=== PATIENT | female | born 1950 | race Caucasian/White ===

== ENCOUNTER 2025-03-13 16:43 | Inpatient (IN) | payer MEDICARE, BC ==
[~2025-03-13] VITALS: Ht 170.2 cm; Wt 107.9 kg
--- NOTE | 2025-03-13 17:11 | ED.PDOC ---
Ravindra. trauma (HPI) HPI Comments 74 y/o F, with PMHx of HTN and DM presents to the ED for CC of right foot pain. Patient states, she was sent by for an MRI d/t pressure ulcer to the 3rd right toe [id number]. Patient relays, the she has had various imaging studies to right foot to examine blood flow to area. Upon arrival to the ED, patient is hypertensive with a blood pressure of 171/114; endorses being nervous at this time. No other symptoms or modifying factors present at this time. Time Seen by MD: 16:55 Reviewed notes: Nurses Notes, Medications, Allergies Allergies: Coded Allergies: NO KNOWN ALLERGIES (Unverified , 03/13/25) Information Source: Patient Mode of Arrival: Ambulatory Severity: Moderate Timing: Months Duration: Since onset Prehospital treatment: None Location: (R) Foot (3rd toe) Location of laceration: None Mechanism: Other (spontaneous) Associated signs and symtoms: None Past Medical History PAST MEDICAL HISTORY: DM, HTN COGNOS ARCHITECT History: Denies all COGNOS ARCHITECT Hx Family History Family History: Unknown Social History Smoker: Non-Smoker Alcohol: Denies ETOH Use Drugs: Denies Drug Use Lives In: Home Constitutional: denies: chills, diaphoresis, fatigue, fever, malaise, sweats, weakness, others EENTM: denies: blurred vision, double vision, ear bleeding, ear discharge, ear drainage, ear pain, ear ringing, eye pain, eye redness, hearing loss, mouth pain, mouth swelling, nasal discharge, nose bleeding, nose congestion, nose pain, photophobia, tearing, throat pain, throat swelling, voice changes, others Respiratory: denies: cough, hemoptysis, orthopnea, SOB at rest, shortness of breath, SOB with excertion, stridor, wheezing, others Cardiovascular: denies: chest pain, dizzy spells, diaphoresis, Dyspnea on exertion, edema, irregular heart beat, left arm pain, lightheadedness, palpitations, PND, syncope, others Gastrointestinal: denies: abdomen distended, abdominal pain, blood streaked bowels, constipated, diarrhea, dysphagia, difficulty swallowing, hematemesis, melena, nausea, poor appetite, poor fluid intake, rectal bleeding, rectal pain, vomiting, others Genitourinary: denies: abnormal vagina bleeding, burning, dyspareunia, dysuria, flank pain, frequency, hematuria, incontinence, pain, , vagina discharge, urgency, others Neurological: denies: dizziness, fainting, headache, left sided numbness, left sided weakness, numbness, paresthesia, pre-existing deficit, right sided numbness, right sided weakness, seizure, speech problems, tingling, tremors, weakness, others Musculoskeletal: denies: back pain, gout, joint pain, joint swelling, muscle pain, muscle stiffness, neck pain, others Integumetry: denies: bruises, change in color, change in hair/nails, dryness, laceration, lesions, lumps, rash, wounds, others Allergic/Immunocompromised: denies: Difficulty Healing, Frequent Infections, Hives, Itching, others Hematologic/Lymphatic: denies: anemia, blood clots, easy bleeding, easy bruising, swollen glands, others Endocrine: denies: excessive hunger, excessive sweating, excessive thirst, excessive urination, flushing, intolerance to cold, intolerance to heat, unexplained weight gain, unexplained weight loss, others Psychiatric: denies: anxiety, bipolar disorder, depression, hopeless, panic disorder, schizophrenia, sleepless, suicidal, others All Other Systems: Reviewed and Negative Physical Exam General Appearance: No Apparent Distress, Normal HEENT: Normal ENT Inspection, Pharynx Normal Neck: Full Range of Motion, Non-Tender, Normal, Normal Inspection Respiratory: Chest Non-Tender, Lungs Clear, No Accessory Muscle Use, No Respiratory Distress, Normal Breath Sounds Cardiovascular: No Edema, No Murmur, No Gallop, Normal Peripheral Pulses, Regular Rate/Rhythm Breast Exam: Deferred Gastrointestinal: No Organomegaly, Non Tender, No Pulsatile Mass, Normal Bowel Sounds, Soft Genitalia: Deferred Pelvic: Deferred Rectal: Deferred Extremities: No calf tenderness, Normal capillary refill, Normal inspection, Normal range of motion, Non-tender, No pedal edema Musculoskeletal : Location: Right Extremity Location: Toe 3 (5mm ulcer to distal right 3rd toe, erythema to area) Neurologic: Alert, transfer clerk II-XII nml as Tested, No Motor Deficits, Normal Affect, Normal Mood, No Sensory Deficits Cerebellar Function: Normal Reflexes: Normal Skin: Dry, Normal Color, Warm Lymphatic: No Adenopathy Was a procedure done? Was a procedure done?: No Differential Diagnosis Neck Injury: Other (pressure ulcer, diabetic foot ulcer) X-Ray, Labs, Meds, VS Vital Signs Date Time Temp Pulse Resp B/P (MAP) Pulse Ox O2 Delivery O2 Flow Rate FiO2 03/13/25 19:43 96 18 96 Room Air 03/13/25 19:43 98.9 96 18 153/90 (111) 96 98.9 03/13/25 16:46 97.9 106 18 180/116 (137) 95 97.9 171/114 (133) Lab Test 03/13/25 19:30 03/13/25 18:33 Range/Units Lactic Acid Level 1.5 1.8 0.4-2.0 mmol/L White Blood Count 8.1 4.4-10.8 10^3/uL Red Blood Count 3.97 L 4.0-5.20 10^6/uL Hemoglobin 12.8 12.2-16.2 g/dL Hematocrit 36.4 36.0-46.0 % Mean Corpuscular Volume 91.8 80.0-100.0 fL Mean Corpuscular Hemoglobin 32.2 H 28.0-32.0 pg Mean Corpuscular Hemoglobin Concent 35.1 32.0-36.0 g/dL Red Cell Distribution Width 13.8 11.8-14.3 % Platelet Count 337 140-450 10^3/uL Mean Platelet Volume 7.5 6.9-10.8 fL Neutrophils (%) (Auto) 48.7 37.0-80.0 % Lymphocytes (%) (Auto) 41.4 10.0-50.0 % Monocytes (%) (Auto) 7.2 0.0-12.0 % Eosinophils (%) (Auto) 2.3 0.0-7.0 % Basophils (%) (Auto) 0.4 0.0-2.0 % Neutrophils # (Auto) 3.9 1.6-8.6 10 ^3/uL Lymphocytes # (Auto) 3.3 0.4-5.4 10 ^3/uL Monocytes # (Auto) 0.6 0-1.3 10 ^3/uL Eosinophils # (Auto) 0.2 0-0.8 10 ^3/uL Basophils # (Auto) 0 0-0.2 10 ^3/uL Nucleated Red Blood Cells 0.3 % Sodium Level 144 136-145 mmol/L Potassium Level 3.9 3.5-5.1 mmol/L Chloride Level 105 98-107 mmol/L Carbon Dioxide Level 27 20-31 mmol/L Anion Gap 12 5-15 Blood Urea Nitrogen 10 9-23 mg/dL Creatinine 0.94 0.550-1.02 mg/dL Glomerular Filtration Rate Calc 63 >90 mL/min BUN/Creatinine Ratio 10.6 10.0-20.0 Serum Glucose 125 H 74-106 mg/dL Calcium Level 10.5 H 8.7-10.4 mg/dL C-Reactive Protein High Sensitivity 0.62 <1.0 mg/dL X-Ray, Labs, Meds, VS Comment Patient will be admitted for osteomyelitis of the right foot 3rd toe Vancomycin started Recommend MRI for further evaluation of bone Time of 1ST Reevaluation: 20:39 Reevaluation 1ST: Unchanged Patient Education/Counseling: Diagnosis, Treatment Family Education/Counseling: No Family Present Departure 1 Departure Time of Disposition: 20:44 Impression: Primary Impression: Osteomyelitis of ankle or foot, acute Qualified Codes: M86.171 - Other acute osteomyelitis, right ankle and foot Disposition: ADMITTED INPATIENT Condition: Stable Critical Care Note Critical Care Time?: No Stability Stability form required: No Heart Score Heart Score: Heart Score Response (Comments) Value History N/A 0 EKG N/A 0 Age N/A 0 Risk Factors N/A 0 Troponin N/A 0 Total 0 I personally scribed for YADY REYNA ([email or web address]) on 03/13/25 at 17:11. Electronically submitted by Olivia Fajardo ([email or web address]). YADY REYNA Mar 13, 2025 17:11
[2025-03-13 19:09] LABS: Basophils # (auto) 0 10 ^3/uL (0-0.2); Basophils % (auto) 0.4 % (0.0-2.0); Eosinophils # (auto) 0.2 10 ^3/uL (0-0.8); Eosinophils % (auto) 2.3 % (0.0-7.0); Hematocrit 36.4 % (36.0-46.0); Hemoglobin 12.8 g/dL (12.2-16.2); Lymphocytes # (auto) 3.3 10 ^3/uL (0.4-5.4); Lymphocytes % (auto) 41.4 % (10.0-50.0); Mean Corpuscular Hemoglobin 32.2 pg (28.0-32.0); Mean Corpuscular Hgb Conc. 35.1 g/dL (32.0-36.0); Mean Corpuscular Volume 91.8 fL (80.0-100.0); Monocytes # (auto) 0.6 10 ^3/uL (0-1.3); Monocytes % (auto) 7.2 % (0.0-12.0); Neutrophils # (auto) 3.9 10 ^3/uL (1.6-8.6); Neutrophils % (auto) 48.7 % (37.0-80.0); Nucleated Red Blood Cells % 0.3 %; Platelet Count (auto) 337 10^3/uL (140-450); Red Blood Cells 3.97 10^6/uL (4.0-5.20); Red Cell Distribution Width 13.8 % (11.8-14.3); White Blood Cell 8.1 10^3/uL (4.4-10.8)
[2025-03-13 19:17] LABS: Chloride 105 mmol/L (98-107); Potassium 3.9 mmol/L (3.5-5.1); Sodium 144 mmol/L (136-145)
[2025-03-13 19:18] LABS: Anion Gap 12 (5-15); Carbon Dioxide 27 mmol/L (20-31)
--- NOTE | 2025-03-13 19:19 | DVH ---
CT right FEET WITHOUT CONTRAST: HISTORY: wound COMPARISON: None CONTRAST: Study was performed without contrast. TECHNIQUE: Axial images with coronal and sagittal reformats of the bilateral feet were obtained witho ut contrast. Dose reduction technique was used on this scan by utilizing automated exposure control, adjustment of the mA and/or kV according to the patient size. DICOM format image data available to [facility]-affiliated external healthcare facilities or entities on a secure, media free, reciprocally searcha ble basis with patient authorization for at least a 12 month period after the study FINDINGS: There is osseus erosion involving the 3rd distal and middle phalanges , osseus erosion of t he tuft of the 2nd distal phalanx, there is volar dislocation- hammertoe deformity of the 3rd through 5th toes. Mild degenerative changes within the mid foot. Posterior and inferior calcaneal enthesopathy is noted . Mild degenerative changes of the tibiotalar joint. Vascular calcifications. IMPRESSION: 1. Osteomyelitis of the 2nd distal phalanx and the 3rd distal and middle phalanges.
[2025-03-13 19:23] LABS: BUN/Creatinine Ratio 10.6 (10.0-20.0); Blood Urea Nitrogen 10 mg/dL (9-23)
[2025-03-13 19:24] LABS: CRP High Sensitivity 0.62 mg/dL (<1.0)
[2025-03-13 19:28] LABS: Calcium 10.5 mg/dL (8.7-10.4); Glucose 125 mg/dL (74-106)
[2025-03-13] MEDS: VANCOMYCIN 1GM/200ML PM 200 ML IV ONE (20:43)
[2025-03-13] MEDS ORDERED: ACETAMINOPHEN 325 MG TAB PO PRN (21:00)
[2025-03-13] MEDS ORDERED: MORPHINE SULFATE INJ 2 MG/ml SYRG IV PRN ×2 (21:00)
[2025-03-13] MEDS ORDERED: NITROGLYCERIN 0.4 MG SL TAB SL PRN (21:00)
[2025-03-13] MEDS ORDERED: DOCUSATE SOD 100 MG CAP PO PRN (21:00)
[2025-03-13] MEDS ORDERED: ONDANSETRON HCL 4 MG/2 ML VIAL IV PRN (21:00)
[2025-03-13] MEDS ORDERED: HYDROcodone-ACET 5/325MG TAB PO PRN (21:00)
[2025-03-13] MEDS ORDERED: VANCOMYCIN PER PHARMACY 0 MG IV SCH (21:15)
[2025-03-13] MEDS ORDERED: DEXTROSE (50%) 50ML SYRG IV PRN (21:15)
--- NOTE | 2025-03-13 21:28 | DVHHPRES ---
History of Present Illness Resident Creating Document: VERÓNICA BHAT RESIDENT History of Present Illness Ms. Ratliff, a 74-year-old female with a past medical history of hypertension and diabetes mellitus presents to the ED with a chief complaint of right foot pain. She reports being referred by Dr. Medina for an MRI due to a pressure ulcer on the third toe of the right foot, present for approximately two months. The ulcer developed spontaneously, without trauma, and she has undergone various imaging studies to assess blood flow to the area. She arrived ambulatory and has not received any prehospital treatment. On arrival, she was hypertensive (BP 171/114), which she attributes to feeling nervous. She denies any associated symptoms or modifying factors. Past Medical History DM, HTN. glaucoma Past Surgical History: None Family History: None, DM, Hyperlipidemia, Hypertension Smoke: No ALCOHOL: none Drugs: None Lives: with Family Domestic Violence: Neg Review of Systems Constitutional: No: Fever, Chills, Sweats, Weakness, Malaise, Other Eyes: No: Pain, Vision change, Conjunctivae inflammation, Eyelid inflammation, Other, Redness ENT: No: Ear pain, Ear discharge, Nose pain, Nose discharge, Nose congestion, Mouth pain, Mouth swelling, Throat pain, Throat swelling, Other Respiratory: No: Cough, Dry, Shortness of breath, SOB with excertion, Wheezing, Hemoptysis, Pleuritic Pain, Sputum, Wheezing, Other Cardiovascular: No: Chest Pain, Palpitations, Orthopnea, Paroxysmal Noc. Dyspnea, Edema, Lt Headedness, Other Gastrointestinal: No: Nausea, Vomiting, Abdominal Pain, Diarrhea, Constipation, Melena, Hematochezia, Other Genitourinary: No Dysuria, No Frequency, No Incontinence, No Hematuria, No Retention, No Other Musculoskeletal: foot pain; No: other, neck pain, shoulder pain, arm pain, back pain, hand pain, leg pain Skin: Lesions; No: Rash, Jaundice, Bruising, Other Neurological: Other (peripheral neuropathy equidistributed ); No: Weakness, Numbness, Incoordination, Change in speech, Confusion, Seizures Allergies: Coded Allergies: NO KNOWN ALLERGIES (Unverified , 03/13/25) Medications Current Medications Medications Dose Ordered Sig/Robert Route Start Time Stop Time Status Last Admin Dose Admin Sodium Chloride 1,000 ml @ 60 mls/hr [id number] IV 03/13/25 21:00 UNV Acetaminophen/ Hydrocodone Bitart 1 tab Q4HP PRN PO 03/13/25 21:00 UNV Ondansetron HCl 4 mg Q4HP PRN IV 03/13/25 21:00 UNV Docusate Sodium 100 mg BIDPRN PRN PO 03/13/25 21:00 UNV Acetaminophen 650 mg Q6HP PRN PO 03/13/25 21:00 UNV Morphine Sulfate 2 mg Q4HPRN PRN IV 03/13/25 21:00 UNV Nitroglycerin 0.4 mg Q5MINP PRN SL 03/13/25 21:00 UNV Morphine Sulfate 2 mg Q30M PRN IV 03/13/25 21:00 UNV Vancomycin HCl 0 ml @ 0 mls/hr UD IV 03/13/25 21:15 UNV Cefepime HCl 50 ml @ 12.5 mls/hr DAILY IV 03/13/25 21:15 UNV Gabapentin 100 mg BID PO 03/13/25 22:00 UNV Diagnostic Test (Pha) 1 strip Q6HR 03/14/25 00:00 UNV Insulin Human Regular Q6HR SC 03/14/25 00:00 UNV Dextrose 50 ml UD PRN IV 03/13/25 21:15 UNV Exam Vital Signs Vital Signs Date Time Temp Pulse Resp B/P (MAP) Pulse Ox O2 Delivery O2 Flow Rate FiO2 03/13/25 19:43 96 18 96 Room Air 03/13/25 19:43 98.9 153/90 (111) 98.9 General Appearance: Alert, Oriented X3, Cooperative, No acute distress HEENT: Atraumatic, PERRLA, EOMI, Mucous membr. moist/pink Respiratory: Clear to auscultation, Normal air movement Cardiovascular: Regular rate, Normal S1, Normal S2, No murmurs Abdominal: Normal bowel sounds, Soft, No tenderness, No hepatospenomegaly, No masses Extremities: No clubbing, No cyanosis, No edema, Normal pulses, No tenderness/swelling, Other (noted wound, dry base ) Skin: No rashes, No breakdown, No significant lesion Neuro: Normal gait, Normal speech, Strength at 5/5 X4 ext, Normal tone, Sensation intact, Cranial nerves 3-12 NL, Reflexes 2+ Psych/Mental Status: Mental status NL, Mood NL Labs/Xrays Labs Test 03/13/25 19:30 03/13/25 18:33 Range/Units Lactic Acid Level 1.5 0.4-2.0 mmol/L White Blood Count 8.1 4.4-10.8 10^3/uL Red Blood Count 3.97 L 4.0-5.20 10^6/uL Hemoglobin 12.8 12.2-16.2 g/dL Hematocrit 36.4 36.0-46.0 % Mean Corpuscular Volume 91.8 80.0-100.0 fL Mean Corpuscular Hemoglobin 32.2 H 28.0-32.0 pg Mean Corpuscular Hemoglobin Concent 35.1 32.0-36.0 g/dL Red Cell Distribution Width 13.8 11.8-14.3 % Platelet Count 337 140-450 10^3/uL Mean Platelet Volume 7.5 6.9-10.8 fL Neutrophils (%) (Auto) 48.7 37.0-80.0 % Lymphocytes (%) (Auto) 41.4 10.0-50.0 % Monocytes (%) (Auto) 7.2 0.0-12.0 % Eosinophils (%) (Auto) 2.3 0.0-7.0 % Basophils (%) (Auto) 0.4 0.0-2.0 % Neutrophils # (Auto) 3.9 1.6-8.6 10 ^3/uL Lymphocytes # (Auto) 3.3 0.4-5.4 10 ^3/uL Monocytes # (Auto) 0.6 0-1.3 10 ^3/uL Eosinophils # (Auto) 0.2 0-0.8 10 ^3/uL Basophils # (Auto) 0 0-0.2 10 ^3/uL Nucleated Red Blood Cells 0.3 % Sodium Level 144 136-145 mmol/L Potassium Level 3.9 3.5-5.1 mmol/L Chloride Level 105 98-107 mmol/L Carbon Dioxide Level 27 20-31 mmol/L Anion Gap 12 5-15 Blood Urea Nitrogen 10 9-23 mg/dL Creatinine 0.94 0.550-1.02 mg/dL Glomerular Filtration Rate Calc 63 >90 mL/min BUN/Creatinine Ratio 10.6 10.0-20.0 Serum Glucose 125 H 74-106 mg/dL Calcium Level 10.5 H 8.7-10.4 mg/dL C-Reactive Protein High Sensitivity 0.62 <1.0 mg/dL Assessment/Plan Assessment/Plan #Likely sepsis, check for lactate, tachycardia, tachypnea. #Essential hypertension, uncontrolled, ideal blood pressure should be 130/80 or below. #hypertensive urgency presented with 180s/ 116, slow BP control over 24-48 hours. #Glaucoma on trouble with Prost 0.004% eyedrops irbesartan 300 mg tab , atenolol 100 mg tab daily #grade 1 obesity: Patient is on Ozempic, continue weight loss. Check TSH. #peripheral neuropathy on gabapentin 100 mg b.i.d. #diabetes mellitus on Ozempic, glimepiride, metformin 100 mg tab. we will check HbA1c keep the blood glucose between 140-180 #osteomyelitis 2nd distal phalanx and 3rd distal middle phalanx: Continue van comycin, cefepime, wound culture, blood culture, Podiatry, possible amputation, keep the patient NPO, check INR. Patient was on home doxycycline, likely subtherapeutic, infective. #diabetic foot ulcer: wound care and diabetes control, foot care. check HbA1C #DVT prophylaxis with SCD. GI prophylaxis with PPI. PCP: Dr. Bailey. Specialist Relevant To Admission: Podiatry consulted Dr. Garcia. Wound consult. Case discussed with Dr. Little. Code Status: Full Code. Goals of care and plan of care discussion needed total 33 minutes bedside. The patient is agreeable to the plan of care. Plan discussed with: Patient My Orders Orders - VERÓNICA BHAT RESIDENT Procedure Category Date Status Time Admit ADMIT 03/13/25 Transmitted 20:53 Allergies SASHA 03/13/25 In Process 20:53 Code Status CODE 03/13/25 Transmitted 20:53 Sodium Chloride 0.9% PHA 03/13/25 Logged 21:00 Hydrocodone-Acet PHA 03/13/25 Logged 5/325mg Tab ([place] 21:00 Ondansetron Hcl PHA 03/13/25 Logged (Zofran) 21:00 Docusate Sodium PHA 03/13/25 Logged Capsule (Colace 21:00 Complete Blood Count LAB 03/14/25 Verified 04:00 Comprehensive LAB 03/14/25 Verified Metabolic Panel 04:00 Npo (Nothing By DIET 03/14/25 Transmitted Mouth) Diet Breakfast Pt Request For Service PT 03/13/25 Logged 20:53 Condition: Fair [facility] 03/13/25 In Process 20:53 Acetaminophen Tablet [facility] 03/13/25 Logged (Tylenol Tablet) 21:00 Morphine Sulfate PHA 03/13/25 Logged Injection 21:00 Sequential SASHA 03/13/25 In Process Compression Device Nitroglycerin [facility] 03/13/25 Logged Sublingual (Ntrostat 21:00 Morphine Sulfate [facility] 03/13/25 Logged Injection 21:00 Oxygen By Nasal RT 03/13/25 Transmitted Cannula 20:53 Stat Ekg For Chest [facility] 03/13/25 In Process Pain 20:53 Notify Md Of Changes [facility] 03/13/25 In Process From Base 20:53 Jewel Waxer For [facility] 03/13/25 In Process 24 Hours 20:53 Emergency Dysrhythmia [facility] 03/13/25 In Process Protocol 20:53 Rhythm Strips Once [facility] 03/13/25 In Process Every Shift 20:53 Vancomycin Per PHA 03/13/25 Logged Pharmacy 21:15 Cefepime 1gm/ 50ml PHA 03/13/25 Logged (Maxipime 1gm/50ml) 21:15 Wound Culture W/ Gs TONE 03/13/25 Logged 21:08 Erythrocyte LAB 03/13/25 Logged Sedimentation Rate 21:08 Hepatic Panel LAB 03/13/25 Logged 21:08 Gabapentin Capsule PHA 03/13/25 Logged (Neurontin Capsule) 22:00 Glucose Blood [facility] 03/14/25 Logged (Accu-Chek Comfort 00:00 Insulin R (Human) PHA 03/14/25 Logged (Insulin R) 00:00 Dextrose 50% Syringe PHA 03/13/25 Logged 21:15 Prothrombin Time W/ LAB 03/13/25 Logged INR 21:08 *Podiatry Consult CONS 03/13/25 Transmitted Musson(Dvmg) 21:08 Date of Service: Mar 13, 2025 Billing Provider: MERLE LITTLE MD Common Visit Codes: [id number] INP/OBS CARE (HIGH) Secondary Visit Codes: [id number] CARE PLAN 30 MINUTES VERÓNICA BHAT RESIDENT Mar 13, 2025 21:28
[2025-03-13] MEDS: SODIUM CHLORIDE 0.9% 1,000 ML IV SCH (21:45)
[2025-03-13 22:04] LABS: Bilirubin, Direct 0.1 mg/dL (<0.3); Bilirubin, Total 0.3 mg/dL (0.2-1.0); Total Protein 7.9 g/dL (5.7-8.2)
[2025-03-13 22:07] LABS: INR 1.02 (0.9-1.15); Prothrombin Time 10.8 sec (9.3-11.8)
[2025-03-13 22:20] LABS: Albumin 4.8 g/dL (3.2-4.8)
[2025-03-13 22:42] LABS: Erythrocyte Sedimentation Rate 47 mm/hr (0-20)
[2025-03-13 22:55] VITALS: BP 154/80; PULSE 93; RESP 17; TEMP 97.8; O2SAT 97
[2025-03-13] MEDS: PANTOPRAZOLE 40 MG/10 ML VIAL INJ IV SCH (23:03)
[2025-03-13] MEDS: CEFEPIME 1GM/ 50ML 50 ML IV SCH (23:03)
[2025-03-13] MEDS: GABAPENTIN 100 MG CAP PO SCH (23:04)
[2025-03-13] MEDS: NIFEdipine ER 30 MG TAB PO ONE (23:08)
[2025-03-14] VITALS (11 sets, daily range): BP systolic 107–142; BP diastolic 62–84; PULSE 75–101; RESP 15–20; TEMP 96.8–98.6; O2SAT 92–98
[2025-03-14] MEDS: ACCU-CHEK COMFORT CURVE STRIP VI SCH (00:07)
[2025-03-14] MEDS: InsuLIN REG 1unit/0.01ml Soln (100units/ml) SC SCH (00:09)
[2025-03-14 07:25] LABS: Basophils # (auto) 0 10 ^3/uL (0-0.2); Basophils % (auto) 0.5 % (0.0-2.0); Eosinophils # (auto) 0.2 10 ^3/uL (0-0.8); Eosinophils % (auto) 2.3 % (0.0-7.0); Hematocrit 33.4 % (36.0-46.0); Hemoglobin 11.7 g/dL (12.2-16.2); Lymphocytes # (auto) 2.7 10 ^3/uL (0.4-5.4); Mean Corpuscular Hemoglobin 32.5 pg (28.0-32.0); Mean Corpuscular Hgb Conc. 35.1 g/dL (32.0-36.0); Mean Corpuscular Volume 92.7 fL (80.0-100.0); Monocytes # (auto) 0.5 10 ^3/uL (0-1.3); Monocytes % (auto) 7.2 % (0.0-12.0); Neutrophils # (auto) 3.5 10 ^3/uL (1.6-8.6); Nucleated Red Blood Cells % 0.1 %; Platelet Count (auto) 292 10^3/uL (140-450); White Blood Cell 6.9 10^3/uL (4.4-10.8)
[2025-03-14 07:28] LABS: Alanine Aminotransferase 13 U/L (7-40); Albumin 4.2 g/dL (3.2-4.8); Alkaline Phosphatase 56 U/L (46-116); Anion Gap 11 (5-15); Aspartate Aminotransferase 18 U/L (<34); BUN/Creatinine Ratio 13.8 (10.0-20.0); Bilirubin, Total 0.4 mg/dL (0.2-1.0); Blood Urea Nitrogen 11 mg/dL (9-23); Calcium 9.2 mg/dL (8.7-10.4); Carbon Dioxide 27 mmol/L (20-31); Chloride 106 mmol/L (98-107); Glucose 98 mg/dL (74-106); Lipase 44 U/L (12-53); Potassium 3.7 mmol/L (3.5-5.1); Sodium 144 mmol/L (136-145); Total Protein 6.9 g/dL (5.7-8.2)
[2025-03-14 07:30] LABS: % Iron Saturation 18.4 % (15-50)
--- NOTE | 2025-03-14 11:41 | DVHINCON2 ---
Date Seen: Mar 14, 2025 Reason for Consultation Right 3rd toe wound History of Present Illness Ms. Ratliff, a 74-year-old female with a past medical history of hypertension and diabetes mellitus presents to the ED with a chief complaint of right foot pain. She reports being referred by Dr. Medina for an MRI due to a pressure ulcer on the third toe of the right foot, present for approximately two months. The ulcer developed spontaneously, without trauma, and she has undergone various imaging studies to assess blood flow to the area. She arrived ambulatory and has not received any prehospital treatment. On arrival, she was hypertensive (BP 171/114), which she attributes to feeling nervous. She denies any associated symptoms or modifying factors. Past Medical History See H&P Past Surgical History See H&P Family History: Patient reports no known family medical history. Allergies: Coded Allergies: NO KNOWN ALLERGIES (Unverified , 03/13/25) Home Meds Unable to Obtain Active Prescriptions or Reported Meds Current Medications Current Medications Medications (Trade) Dose Ordered Sig/Robert Route PRN Reason Start Time Stop Time Status Last Admin Sodium Chloride 1,000 ml @ 60 mls/hr [id number] IV 03/13/25 21:00 03/13/25 23:04 Acetaminophen/ Hydrocodone Bitart (Alma 5/325MG Tab) 1 tab Q4HP PRN PO MODERATE PAIN (4-6 PAIN SCALE) 03/13/25 21:00 Ondansetron HCl (Zofran) 4 mg Q4HP PRN IV NAUSEA / VOMITING 03/13/25 21:00 Docusate Sodium (Colace Capsule) 100 mg BIDPRN PRN PO FOR CONSTIPATION 03/13/25 21:00 Acetaminophen (Tylenol Tablet) 650 mg Q6HP PRN PO PAIN SCALE 1-3 OR TEMP>100.4 03/13/25 21:00 Morphine Sulfate 2 mg Q4HPRN PRN IV SEVERE PAIN (7-10 PAIN SCALE) 03/13/25 21:00 Nitroglycerin (Ntrostat Sublingual) 0.4 mg Q5MINP PRN SL FOR CHEST PAIN 03/13/25 21:00 Morphine Sulfate 2 mg Q30M PRN IV FOR CHEST PAIN 03/13/25 21:00 Vancomycin HCl 0 ml @ 0 mls/hr UD IV 03/13/25 21:15 Cefepime HCl 50 ml @ 12.5 mls/hr DAILY IV 03/13/25 21:15 03/14/25 09:57 Gabapentin (Neurontin Capsule) 100 mg BID PO 03/13/25 22:00 03/14/25 09:55 Diagnostic Test (Pha) (Accu-Chek Comfort Curve T) 1 strip Q6HR 03/14/25 00:00 03/14/25 05:48 Insulin Human Regular (InsuLIN R) Q6HR SC 03/14/25 00:00 03/14/25 00:09 Dextrose 50 ml UD PRN IV Blood Sugar LESS THAN 60 03/13/25 21:15 Pantoprazole Sodium (Protonix) 40 mg DAILY IV 03/13/25 21:30 03/14/25 10:02 Vital Signs Vital Signs Date Time Temp Pulse Resp B/P (MAP) Pulse Ox O2 Delivery O2 Flow Rate FiO2 03/14/25 09:00 97.9 90 20 116/81 (93) 98 97.9 03/14/25 01:53 Room Air* 0 21 Physical Exam Dermatological: Skin is dry with mild erythema and some maceration around the wound site No gross deformities noted Mild non-pitting edema present bilaterally Wound: Location: Right 3rd toe Measures: 1 cm in length, 1 cm in width, and 0.5 cm in depth. Depth: Full thickness Base: Mix of granulation/slough Drainage: None Odor: None Periwound: Intact Vascular: Dorsalis pedis and posterior tibial pulses are 1+ bilaterally Capillary refill is under 2 seconds Skin temperature is warm bilaterally Neurologic: Protective sensation is absent on the plantar forefoot bilaterally Monofilament testing reveals decreased sensation in multiple plantar sites Musculoskeletal: Range of motion at the ankle and MTP joints is within normal limits. Strength is 5/5 in all tested muscle groups. Gait is antalgic due to offloading of the affected limb. Labs/Diagnostic Data Labs Test 03/14/25 06:45 03/14/25 05:42 03/13/25 18:33 Range/Units White Blood Count 6.9 4.4-10.8 10^3/uL Red Blood Count 3.60 L 4.0-5.20 10^6/uL Hemoglobin 11.7 L 12.2-16.2 g/dL Hematocrit 33.4 L 36.0-46.0 % Mean Corpuscular Volume 92.7 80.0-100.0 fL Mean Corpuscular Hemoglobin 32.5 H 28.0-32.0 pg Mean Corpuscular Hemoglobin Concent 35.1 32.0-36.0 g/dL Red Cell Distribution Width 14.0 11.8-14.3 % Platelet Count 292 140-450 10^3/uL Mean Platelet Volume 7.4 6.9-10.8 fL Neutrophils (%) (Auto) 51.0 37.0-80.0 % Lymphocytes (%) (Auto) 39.0 10.0-50.0 % Monocytes (%) (Auto) 7.2 0.0-12.0 % Eosinophils (%) (Auto) 2.3 0.0-7.0 % Basophils (%) (Auto) 0.5 0.0-2.0 % Neutrophils # (Auto) 3.5 1.6-8.6 10 ^3/uL Lymphocytes # (Auto) 2.7 0.4-5.4 10 ^3/uL Monocytes # (Auto) 0.5 0-1.3 10 ^3/uL Eosinophils # (Auto) 0.2 0-0.8 10 ^3/uL Basophils # (Auto) 0 0-0.2 10 ^3/uL Nucleated Red Blood Cells 0.1 % Sodium Level 144 136-145 mmol/L Potassium Level 3.7 3.5-5.1 mmol/L Chloride Level 106 98-107 mmol/L Carbon Dioxide Level 27 20-31 mmol/L Anion Gap 11 5-15 Blood Urea Nitrogen 11 9-23 mg/dL Creatinine 0.80 0.550-1.02 mg/dL Glomerular Filtration Rate Calc 77 >90 mL/min BUN/Creatinine Ratio 13.8 10.0-20.0 Serum Glucose 98 74-106 mg/dL Lactic Acid Level 1.2 0.4-2.0 mmol/L Calcium Level 9.2 8.7-10.4 mg/dL Iron Level 50 50-170 ug/dL Total Iron Binding Capacity 272 250-425 ug/dL Percent Iron Saturation 18.4 15-50 % Ferritin 157.1 10-291 ng/mL Total Bilirubin 0.4 0.2-1.0 mg/dL Aspartate Amino Transferase (AST) 18 <34 U/L Alanine Aminotransferase (ALT) 13 7-40 U/L Alkaline Phosphatase 56 46-116 U/L Total Protein 6.9 5.7-8.2 g/dL Albumin 4.2 3.2-4.8 g/dL Lipase 44 12-53 U/L Thyroid Stimulating Hormone (TSH) 3.18 0.55-4.78 uIU/mL POC Glucose 98 70-106 mg/dl Erythrocyte Sedimentation Rate 47 H 0-20 mm/hr Prothrombin Time 10.8 9.3-11.8 sec Prothrombin Time INR 1.02 0.9-1.15 Hemoglobin A1c 5.9 H <5.7 % A1C Direct Bilirubin 0.1 <0.3 mg/dL C-Reactive Protein High Sensitivity 0.62 <1.0 mg/dL Problems(with codes): (1) Osteomyelitis of ankle or foot, acute Plan/Recommendation ASSESSMENT: Patient is a 74 year old seen on the floor for a worsening ulcer PLAN: - The patients chart was reviewed, clinical findings were discussed with the patient, the etiologies of the conditions were discussed in detail, and a treatment plan was agreed to at this time, with both oral and written instructions provided. - reviewed advanced imaging - discussed plan is to perform an incision and drainage - patient has been NPO since midnight - take him to the OR today - we will get cultures in the OR - can weightbear as tolerated in postoperative shoe - can discharged home on p.o. antibiotics pending surgical intervention today All questions were answered and concerns addressed to the patient's satisfaction. The patient was given the phone number to the clinic and was told how to make contact with the clinic should any concerns or questions arise. Patient understands that if any questions or concerns arise prior to the next appointment, we should be contacted immediately. FOLLOW-UP: Continue to follow while inpatient Plan discussed with: Patient Date of Service: Mar 14, 2025 Billing Provider: ORQUIDEA ROBERT DPM Common Visit Codes: CONSULT ONLY Consultation Codes: [id number] CONSULT <80MIN ORQUIDEA ROBERT DPM Mar 14, 2025 11:40
--- NOTE | 2025-03-14 11:45 | DVHPN2 ---
Reviewed: Care Plan, H&P, Labs, Medications, Previous Orders, Radiology Changes from previous H/P or p: No Changes Eyes: No Pain, No Vision change, No Conjunctivae inflammation, No Eyelid inflammation, No Other, No Redness ENT: No Ear pain, No Ear discharge, No Nose pain, No Nose discharge, No Nose congestion, No Mouth pain, No Mouth swelling, No Throat pain, No Throat swelling, No Other Cardiovascular: No Chest Pain, No Palpitations, No Orthopnea, No Paroxysmal Noc. Dyspnea, No Edema, No Lt Headedness, No Other Respiratory: No Cough, No Dry, No Shortness of breath, No SOB with excertion, No Wheezing, No Hemoptysis, No Pleuritic Pain, No Sputum, No Other Gastrointestinal: No Nausea, No Vomiting, No Abdominal Pain, No Diarrhea, No Constipation, No Melena, No Hematochezia, No Other Genitourinary: No Dysuria, No Frequency, No Incontinence, No Hematuria, No Retention, No Other Musculoskeletal: No other, No neck pain, No shoulder pain, No arm pain, No back pain, No hand pain, No leg pain; foot pain Skin: No Rash; Lesions; No Jaundice, No Bruising, No Other Objective Vitals Vital Signs Date Time Temp Pulse Resp B/P (MAP) Pulse Ox O2 Delivery O2 Flow Rate FiO2 03/14/25 09:00 97.9 90 20 116/81 (93) 98 97.9 03/14/25 01:53 Room Air* 0 21 Intake/Output Intake and Output 03/14/25 07:00 Intake Total 450 ml Balance 450 ml Intake Oral 200 ml IV Total 250 ml # Voids 1 Medications Current Medications Medications Dose Ordered Sig/Robert Route Start Time Stop Time Status Last Admin Dose Admin Sodium Chloride 1,000 ml @ 60 mls/hr [id number] IV 03/13/25 21:00 03/13/25 23:04 60 MLS/HR Acetaminophen/ Hydrocodone Bitart 1 tab Q4HP PRN PO 03/13/25 21:00 Ondansetron HCl 4 mg Q4HP PRN IV 03/13/25 21:00 Docusate Sodium 100 mg BIDPRN PRN PO 03/13/25 21:00 Acetaminophen 650 mg Q6HP PRN PO 03/13/25 21:00 Morphine Sulfate 2 mg Q4HPRN PRN IV 03/13/25 21:00 Nitroglycerin 0.4 mg Q5MINP PRN SL 03/13/25 21:00 Morphine Sulfate 2 mg Q30M PRN IV 03/13/25 21:00 Vancomycin HCl 0 ml @ 0 mls/hr UD IV 03/13/25 21:15 Cefepime HCl 50 ml @ 12.5 mls/hr DAILY IV 03/13/25 21:15 03/14/25 09:57 12.5 MLS/HR Gabapentin 100 mg BID PO 03/13/25 22:00 03/14/25 09:55 100 MG Diagnostic Test (Pha) 1 strip Q6HR 03/14/25 00:00 03/14/25 05:48 1 STRIP Insulin Human Regular Q6HR SC 03/14/25 00:00 03/14/25 00:09 3 UNITS Dextrose 50 ml UD PRN IV 03/13/25 21:15 Pantoprazole Sodium 40 mg DAILY IV 03/13/25 21:30 03/14/25 10:02 40 MG Laboratory Results Laboratory Tests 03/14/25 06:45 Chemistry Test 03/13/25 18:33 03/14/25 06:45 Albumin 4.8 g/dL (3.2-4.8) 4.2 g/dL (3.2-4.8) Calcium Level 10.5 mg/dL (8.7-10.4) H 9.2 mg/dL (8.7-10.4) Total Protein 7.9 g/dL (5.7-8.2) 6.9 g/dL (5.7-8.2) Coagulation Test 03/13/25 18:33 Prothrombin Time 10.8 sec (9.3-11.8) Prothrombin Time INR 1.02 (0.9-1.15) Lipid panel Test 03/14/25 06:45 Lipase 44 U/L (12-53) LFT Test 03/13/25 18:33 03/14/25 06:45 Alanine Aminotransferase (ALT) 13 U/L (7-40) 13 U/L (7-40) Alkaline Phosphatase 71 U/L (46-116) 56 U/L (46-116) Aspartate Amino Transferase (AST) 20 U/L (<34) 18 U/L (<34) Direct Bilirubin 0.1 mg/dL (<0.3) Total Bilirubin 0.3 mg/dL (0.2-1.0) 0.4 mg/dL (0.2-1.0) HgA1c, TSH Test 03/13/25 18:33 03/14/25 06:45 Hemoglobin A1c 5.9 % A1C (<5.7) H Thyroid Stimulating Hormone (TSH) 2.14 uIU/mL (0.55-4.78) 3.18 uIU/mL (0.55-4.78) Labs and/or images reviewed: Labs reviewed by me, Image(s) reviewed by me Assessment/Plan Assessment/Plan Sepsis secondary to osteomyelitis: Blood cultures pending Acute osteomyelitis right 2nd and 3rd toe: Vancomycin cefepime consult for orthotic and prosthetic technician Dr Garcia Hypertensive urgency BP 174/114 metoprolol tartrate Peripheral neuropathy on gabapentin Diabetic right foot ulcer Uncontrolled diabetes: Insulin sliding scale: Patient on Ozempic metformin glimepiride, Will check A1c Diabetic neuropathy nephropathy vasculopathy: Gabapentin Time spent 70 minutes Advanced care planning time 20 minutes Patient is full code PCP Dr. Banda in [place] Plan discussed with: Patient Date of Service: Mar 14, 2025 Billing Provider: ANNIE PRECIADO MD Common Visit Codes: [id number] CARE 30-74 MIN ANNIE PRECIADO MD Mar 14, 2025 11:45
[2025-03-14] MEDS: METOPROLOL TARTRATE 50 MG TAB PO SCH (12:42)
[2025-03-14] MEDS: ceFAZolin 1GM/50ML 100 ML IV ONE (13:40)
[2025-03-14] MEDS: BUPIVACAINE 0.5% P/F INJ 10 ML VIAL ONE (14:34)
[2025-03-14] MEDS ORDERED: fentaNYL CITRATE 100 MCG/2 ML VL ONE (14:44)
[2025-03-14] MEDS ORDERED: MIDAZOLAM HCL 2MG/2ML 2ml VIAL (1mg/ml) ONE (14:44)
--- NOTE | 2025-03-14 14:44 | DVH ---
CHEST RADIOGRAPH Indication: PREOP EVAL Technique: Single frontal view of the chest was obtained COMPARISON: None FINDINGS: Lines and Tubes: None Lungs: Clear Pleura: No effusion. No pneumothorax. Cardiomediastinal contours: Unremarkable Bones: Unremarkable IMPRESSION: No acute disease.
[2025-03-14] MEDS: VANCOMYCIN HCL 1000 MG VL ONE (14:46)
--- NOTE | 2025-03-14 15:01 | DVHOP2 ---
Operative Report - 2 Report Details Date: 03/14/25 Preop Diagnosis: 1. Right 3rd toe osteomyelitis 2. Right 3rd toe abscess 3. Right 3rd toe cellulitis 4. Right foot hammertoes 2 through 5 5. Right foot diabetic ulcer Postop Diagnosis: Same as preop Surgeon: Orquidea Robert MD Anesthesiologist: See anesthesia Anesthesia: Mac Consent: The patient was informed of the risks and benefits of the procedure. These include but are not limited to complications of anesthesia, postoperative infection, incomplete relief of symptoms, recurrence of symptoms, damage to blood vessels, nerves and tendons, deep venous thrombosis, pulmonary embolism and possible need for repeat surgery in the future. Complications: None Estimated Blood Loss: Minimal Fluids: See anesthesia Findings: Consistent with the diagnosis Indications for Surgery: Worsening foot wound Name of Procedure Performed 1. Right foot I&D to bone (85006) 2. Right distal phalanx amputation (81210) 3. Right proximal phalanx bone biopsy () 4. Right diabetic rotational flap (63367) 5. Right foot delayed closure (75040) 6. Right flexor tenotomy toes 2-5 (75924) x 4 Procedure Details Procedure Details: PRE-PROCEDURE INFORMATION: In the pre-op holding area, the extremity to be operated on was clearly marked and the patient verified correct laterality of the marking. The patient was transferred to the OR table and placed in a supine position. A timeout was performed in which identification of the correct patient, procedure, location, and materials was done. The right foot and leg were prepped and draped in normal sterile fashion. DESCRIPTION OF PROCEDURE: Attention was directed to the right where area of fluctuance was noted. An incision was made over this area and was deepened through blunt dissection. The incision was deepened to the level of abscess and bone. Care was taken to the dissection to avoid any neurovascular and tendinous structures. The incision was deepened to the bone, and the abscess appeared to be purulent fluid consistent with pus. The cortices of the bone was then removed with rongeur an all necrotic tissue. After the abscess was drained, the area was irrigated with 3 L normal saline using cysto tubing. Deep cultures were then obtained from the wound. The area was then inspected and any areas of tracking, especially along the tendons were also drained. It was decided at this point that the distal phalanx needed to be removed. A rongeur was then used to disarticulate at the IPJ. A bone biopsy was then taken of the proximal phalanx and sent off. Due to the soft tissue deficit, rotational advancement flap was designed medially to laterally and elevated preserving vascularity. A delayed closure was then performed using 2-0 nylon after was deemed appropriate with no longer concern for infection. Attention was directed to the right 2nd toe. Using a 18 gauge needle, the toe was extended and a sweeping motion was made on the FDL. It was noted that the contracture of the digit was then relieved after the flexor tendon was released. Attention was directed to the right 3rd toe. Using a 18 gauge needle, the toe was extended and a sweeping motion was made on the FDL. It was noted that the contracture of the digit was then relieved after the flexor tendon was released. Attention was directed to the right 4th toe. Using a 18 gauge needle, the toe was extended and a sweeping motion was made on the FDL. It was noted that the contracture of the digit was then relieved after the flexor tendon was released. Attention was directed to the right 5th toe. Using a 18 gauge needle, the toe was extended and a sweeping motion was made on the FDL. It was noted that the contracture of the digit was then relieved after the flexor tendon was released. All surgical wounds were irrigated copiously with saline and closed in layers with the aforementioned suture material. A dry sterile dressing was placed on the surgical extremity. The patient was placed in a postop shoe POSTOPERATIVE INFORMATION: The patient tolerated the above noted procedure and anesthesia well and was transferred to the PACU with vital signs stable, and vascular status intact with capillary refill intact to all digits. Deep cultu res were taken. Bone biopsy was sent off. Recommend the patient does 3 weeks of p.o. antibiotics based off surgical specimen appears to be with clean bone. Can weightbear as tolerated in a postop shoe. Leave dressings clean dry and intact until 1st postop visit, patient can be discharged home. Specimen: Right 3rd proximal phalanx Condition Good Disposition Still a Patient ORQUIDEA ROBERT DPM Mar 14, 2025 15:01
[2025-03-14] MEDS: VANCOMYCIN 1GM/200ML PM 200 ML IV SCH (15:34)
[2025-03-15] VITALS (8 sets, daily range): BP systolic 102–129; BP diastolic 62–79; PULSE 76–100; RESP 14–20; TEMP 97.4–97.8; O2SAT 95–100
--- NOTE | 2025-03-15 07:46 | ECG ---
[facility] Test Date: 2025-03-14 Test Time: 14:01:57 Pat Name: GWEN FERNANDEZ Department: Room: 0223 A Gender: F Diesel Engine Mechanic Apprentice: TERESA : 1950 Requested By: FLYNN RITTER Order Number: [id number] Reading MD: Vickey Johnson Measurements Intervals [place] Rate: 97 P: 10 UT: 276 QRS: 18 QRSD: 94 T: 63 QT: 412 QTc: 523 Interpretive Statements Sinus rhythm with 1st degree AV block Prolonged QT Electronically Signed On 03-17-2025 20:19:44 PDT by Vickey Johnson Please click the below link to view image of tracing.
--- NOTE | 2025-03-15 10:17 | DVHPN2 ---
Reviewed: Care Plan, H&P, Labs, Medications, Previous Orders, Radiology Changes from previous H/P or p: No Changes Eyes: No Pain, No Vision change, No Conjunctivae inflammation, No Eyelid inflammation, No Other, No Redness ENT: No Ear pain, No Ear discharge, No Nose pain, No Nose discharge, No Nose congestion, No Mouth pain, No Mouth swelling, No Throat pain, No Throat swelling, No Other Cardiovascular: No Chest Pain, No Palpitations, No Orthopnea, No Paroxysmal Noc. Dyspnea, No Edema, No Lt Headedness, No Other Respiratory: No Cough, No Dry, No Shortness of breath, No SOB with excertion, No Wheezing, No Hemoptysis, No Pleuritic Pain, No Sputum, No Other Gastrointestinal: No Nausea, No Vomiting, No Abdominal Pain, No Diarrhea, No Constipation, No Melena, No Hematochezia, No Other Genitourinary: No Dysuria, No Frequency, No Incontinence, No Hematuria, No Retention, No Other Musculoskeletal: foot pain Skin: Lesions Objective Vitals Vital Signs Date Time Temp Pulse Resp B/P (MAP) Pulse Ox O2 Delivery O2 Flow Rate FiO2 03/15/25 09:13 78 106/64 03/15/25 05:00 97.4 18 98 97.4 03/14/25 20:00 Room Air* 0 21 Intake/Output Intake and Output 03/15/25 07:00 Intake Total 1930 ml Balance 1930 ml Intake Oral 1340 ml IV Total 590 ml # Voids 3 Medications Current Medications Medications Dose Ordered Sig/Robert Route Start Time Stop Time Status Last Admin Dose Admin Sodium Chloride 1,000 ml @ 60 mls/hr [id number] IV 03/13/25 21:00 03/15/25 05:31 60 MLS/HR Acetaminophen/ Hydrocodone Bitart 1 tab Q4HP PRN PO 03/13/25 21:00 Ondansetron HCl 4 mg Q4HP PRN IV 03/13/25 21:00 Docusate Sodium 100 mg BIDPRN PRN PO 03/13/25 21:00 Acetaminophen 650 mg Q6HP PRN PO 03/13/25 21:00 Morphine Sulfate 2 mg Q4HPRN PRN IV 03/13/25 21:00 Nitroglycerin 0.4 mg Q5MINP PRN SL 03/13/25 21:00 Morphine Sulfate 2 mg Q30M PRN IV 03/13/25 21:00 Vancomycin HCl 0 ml @ 0 mls/hr UD IV 03/13/25 21:15 Cefepime HCl 50 ml @ 12.5 mls/hr DAILY IV 03/13/25 21:15 03/15/25 09:10 12.5 MLS/HR Gabapentin 100 mg BID PO 03/13/25 22:00 03/15/25 09:11 100 MG Diagnostic Test (Pha) 1 strip Q6HR 03/14/25 00:00 03/15/25 05:31 1 STRIP Insulin Human Regular Q6HR SC 03/14/25 00:00 03/14/25 23:31 6 UNITS Dextrose 50 ml UD PRN IV 03/13/25 21:15 Pantoprazole Sodium 40 mg DAILY IV 03/13/25 21:30 03/15/25 09:11 40 MG Metoprolol Tartrate 50 mg BID PO 03/14/25 12:42 03/15/25 09:13 50 MG Vancomycin HCl 200 ml @ 200 mls/hr Q12H IV 03/14/25 15:00 03/15/25 03:01 200 MLS/HR Laboratory Results Laboratory Tests 03/14/25 06:45 03/15/25 06:41 Microbiology Microbiology Date/Time Source Procedure Growth Status 03/14/25 15:24 Foot Right Gram Stain Pending Resulted 03/14/25 15:24 Foot Right Anaerobic Culture Pending Resulted 03/14/25 15:24 Foot Right Aerobic Culture - Preliminary Resulted 03/14/25 15:00 Voided Urine Urine Culture - Preliminary Resulted 03/14/25 06:45 Blood Blood Culture - Preliminary NO GROWTH AFTER 24 HOURS OF INCUBATION. Resulted Labs and/or images reviewed: Labs reviewed by me, Image(s) reviewed by me Assessment/Plan Assessment/Plan Sepsis secondary to osteomyelitis: Blood cultures negative urine cultures negative, wound cultures negative Acute osteomyelitis right 2nd and 3rd toe: Vancomycin cefepime consult for media manager Dr Garcia status post right foot I&D to bone, right distal phalanx amputation, right proximal phalanx bone biopsy by Dr. Garcia 03-14-25 Hypertensive urgency BP 174/114 metoprolol tartrate Peripheral neuropathy on gabapentin Diabetic right foot ulcer Uncontrolled diabetes: Insulin sliding scale: Patient on Ozempic metformin glimepiride, Will check A1c Diabetic neuropathy nephropathy vasculopathy: Gabapentin Time spent 70 minutes Advanced care planning time 20 minutes Patient is full code PCP [facility] Banda in [facility] versus SNF placement Plan discussed with: Patient My Orders Orders - ANNIE PRECIADO MD Procedure Category Date Status Time Metoprolol Tartrate PHA 03/14/25 In Process Tablet (Lopressor Ta 12:42 Consistent DIET 03/14/25 [facility]mitted [facility] D[facility] Date of Service: Mar 15, 2025 Billing Provider: ANNIE PRECIADO MD Common Visit Codes: [id number] INP/OBS CARE(HIGH) ANNIE PRECIADO MD Mar 15, 2025 10:17
[2025-03-16 01:00] VITALS: BP 123/76; PULSE 87; RESP 12; TEMP 97.5; O2SAT 100
[2025-03-16 05:00] VITALS: BP 123/73; PULSE 90; RESP 18; TEMP 97.5; O2SAT 98
[2025-03-16 08:00] VITALS: PULSE 76; RESP 18; O2SAT 98
[2025-03-16 09:00] VITALS: BP 127/81; PULSE 76; RESP 17; TEMP 98.1; O2SAT 96
--- NOTE | 2025-03-16 10:27 | DVHPN2 ---
Reviewed: Care Plan, H&P, Labs, Medications, Previous Orders, Radiology Changes from previous H/P or p: No Changes Eyes: No Pain, No Vision change, No Conjunctivae inflammation, No Eyelid inflammation, No Other, No Redness ENT: No Ear pain, No Ear discharge, No Nose pain, No Nose discharge, No Nose congestion, No Mouth pain, No Mouth swelling, No Throat pain, No Throat swelling, No Other Cardiovascular: No Chest Pain, No Palpitations, No Orthopnea, No Paroxysmal Noc. Dyspnea, No Edema, No Lt Headedness, No Other Respiratory: No Cough, No Dry, No Shortness of breath, No SOB with excertion, No Wheezing, No Hemoptysis, No Pleuritic Pain, No Sputum, No Other Gastrointestinal: No Nausea, No Vomiting, No Abdominal Pain, No Diarrhea, No Constipation, No Melena, No Hematochezia, No Other Genitourinary: No Dysuria, No Frequency, No Incontinence, No Hematuria, No Retention, No Other Musculoskeletal: foot pain Skin: Lesions Objective Vitals Vital Signs Date Time Temp Pulse Resp B/P (MAP) Pulse Ox O2 Delivery O2 Flow Rate FiO2 03/16/25 09:27 78 127/81 03/16/25 09:00 98.1 17 96 98.1 03/15/25 20:00 Room Air* 0 21 Intake/Output Intake and Output 03/16/25 07:00 Intake Total 1590 ml Balance 1590 ml Intake Oral 1340 ml IV Total 250 ml # Voids 3 Medications Current Medications Medications Dose Ordered Sig/Robert Route Start Time Stop Time Status Last Admin Dose Admin Sodium Chloride 1,000 ml @ 60 mls/hr [id number] IV 03/13/25 21:00 03/15/25 21:40 60 MLS/HR Acetaminophen/ Hydrocodone Bitart 1 tab Q4HP PRN PO 03/13/25 21:00 Ondansetron HCl 4 mg Q4HP PRN IV 03/13/25 21:00 Docusate Sodium 100 mg BIDPRN PRN PO 03/13/25 21:00 Acetaminophen 650 mg Q6HP PRN PO 03/13/25 21:00 Morphine Sulfate 2 mg Q4HPRN PRN IV 03/13/25 21:00 Nitroglycerin 0.4 mg Q5MINP PRN SL 03/13/25 21:00 Morphine Sulfate 2 mg Q30M PRN IV 03/13/25 21:00 Vancomycin HCl 0 ml @ 0 mls/hr UD IV 03/13/25 21:15 Cefepime HCl 50 ml @ 12.5 mls/hr DAILY IV 03/13/25 21:15 03/16/25 09:25 12.5 MLS/HR Gabapentin 100 mg BID PO 03/13/25 22:00 03/16/25 09:26 100 MG Diagnostic Test (Pha) 1 strip Q6HR 03/14/25 00:00 03/16/25 06:03 1 STRIP Insulin Human Regular Q6HR SC 03/14/25 00:00 03/15/25 23:21 2 UNITS Dextrose 50 ml UD PRN IV 03/13/25 21:15 Pantoprazole Sodium 40 mg DAILY IV 03/13/25 21:30 03/16/25 09:25 40 MG Metoprolol Tartrate 50 mg BID PO 03/14/25 12:42 03/16/25 09:27 50 MG Vancomycin HCl 200 ml @ 200 mls/hr Q12H IV 03/14/25 15:00 03/16/25 03:59 200 MLS/HR Laboratory Results Laboratory Tests 03/14/25 06:45 03/16/25 01:59 Microbiology Microbiology Date/Time Source Procedure Growth Status 03/14/25 15:24 Foot Right Gram Stain - Final Resulted 03/14/25 15:24 Foot Right Anaerobic Culture - Preliminary Resulted 03/14/25 15:24 Foot Right Aerobic Culture - Preliminary Resulted 03/14/25 15:00 Voided Urine Urine Culture - Final Complete 03/14/25 06:45 Blood Blood Culture - Preliminary NO GROWTH AFTER 48 HOURS OF INCUBATION. Resulted Labs and/or images reviewed: Labs reviewed by me, Image(s) reviewed by me Assessment/Plan Assessment/Plan Sepsis secondary to osteomyelitis: Blood cultures negative urine cultures negative, wound cultures aerobic culture negative, wound anaerobic cultures pending Acute osteomyelitis right 2nd and 3rd toe: Vancomycin cefepime consult for screw remover Dr Garcia status post right foot I&D to bone, right distal phalanx amputation, right proximal phalanx bone biopsy and delayed closure by Dr. Garcia 03-14-25 Hypertensive urgency BP 174/114 metoprolol tartrate Peripheral neuropathy on gabapentin Diabetic right foot ulcer Controlled diabetes: Insulin sliding scale: Patient on Ozempic metformin glimepiride, A1c 5.9 Diabetic neuropathy nephropathy vasculopathy: Gabapentin Time spent 50 minutes Advanced care planning time 30 minutes Patient is full code PCP Dr. Banda in [place] Patient is refusing SNF placement Advised the patient needs IV antibiotics for six weeks by home health for osteomyelitis, patient does not want PICC line until she is clear that IV antibiotics are a must, ID consult placed for Dr. Tyree Feldman for antibiotic choice MARC Warren at bedside during discussion Plan discussed with: Patient My Orders Orders - ANNIE PRECIADO MD Procedure Category Date Status Time * Dietary Consult CONS 03/15/25 Transmitted 14:12 * Cardiology Consult CONS 03/15/25 Transmitted 14:24 * Infectious Albert- CONS 03/16/25 Verified Jean Carlos Feldman 10:04 Date of Service: Mar 16, 2025 Billing Provider: ANNIE PRECIADO MD Common Visit Codes: [id number] INP/OBS CARE(HIGH) Secondary Visit Codes: [id number] CARE PLAN 30 MINUTES ANNIE PRECIADO MD Mar 16, 2025 10:27
--- NOTE | 2025-03-16 12:31 | DVHPN2 ---
Subjective Ms. Ratliff, a 74-year-old female with a past medical history of hypertension and diabetes mellitus presents to the ED with a chief complaint of right foot pain. She reports being referred by Dr. Medina for an MRI due to a pressure ulcer on the third toe of the right foot, present for approximately two months. The ulcer developed spontaneously, without trauma, and she has undergone various imaging studies to assess blood flow to the area. She arrived ambulatory and has not received any prehospital treatment. On arrival, she was hypertensive (BP 171/114), which she attributes to feeling nervous. She denies any associated symptoms or modifying factors. Reviewed: Care Plan, H&P, Labs, Medications, Previous Orders, Radiology Changes from previous H/P or p: No Changes Eyes: No Pain, No Vision change, No Conjunctivae inflammation, No Eyelid inflammation, No Other, No Redness ENT: No Ear pain, No Ear discharge, No Nose pain, No Nose discharge, No Nose congestion, No Mouth pain, No Mouth swelling, No Throat pain, No Throat swelling, No Other Cardiovascular: No Chest Pain, No Palpitations, No Orthopnea, No Paroxysmal Noc. Dyspnea, No Edema, No Lt Headedness, No Other Respiratory: No Cough, No Dry, No Shortness of breath, No SOB with excertion, No Wheezing, No Hemoptysis, No Pleuritic Pain, No Sputum, No Other Gastrointestinal: No Nausea, No Vomiting, No Abdominal Pain, No Diarrhea, No Constipation, No Melena, No Hematochezia, No Other Genitourinary: No Dysuria, No Frequency, No Incontinence, No Hematuria, No Retention, No Other Musculoskeletal: foot pain Skin: Lesions Objective Vitals Vital Signs Date Time Temp Pulse Resp B/P (MAP) Pulse Ox O2 Delivery O2 Flow Rate FiO2 03/16/25 09:27 78 127/81 03/16/25 09:00 98.1 17 96 98.1 03/16/25 08:00 Room Air* 0 21 Intake/Output Intake and Output 03/16/25 07:00 Intake Total 1590 ml Balance 1590 ml Intake Oral 1340 ml IV Total 250 ml # Voids 3 Exam Dermatological: Skin is dry with mild erythema and some maceration around the wound site No gross deformities noted Mild non-pitting edema present bilaterally Sutures intact to the right 2nd toe Vascular: Dorsalis pedis and posterior tibial pulses are 1+ bilaterally Capillary refill is under 2 seconds Skin temperature is warm bilaterally Neurologic: Protective sensation is absent on the plantar forefoot bilaterally Monofilament testing reveals decreased sensation in multiple plantar sites Musculoskeletal: Range of motion at the ankle and MTP joints is within normal limits. Strength is 5/5 in all tested muscle groups. Gait is antalgic due to offloading of the affected limb. Medications Current Medications Medications Dose Ordered Sig/Robert Route Start Time Stop Time Status Last Admin Dose Admin Sodium Chloride 1,000 ml @ 60 mls/hr [id number] IV 03/13/25 21:00 03/15/25 21:40 60 MLS/HR Acetaminophen/ Hydrocodone Bitart 1 tab Q4HP PRN PO 03/13/25 21:00 Ondansetron HCl 4 mg Q4HP PRN IV 03/13/25 21:00 Docusate Sodium 100 mg BIDPRN PRN PO 03/13/25 21:00 Acetaminophen 650 mg Q6HP PRN PO 03/13/25 21:00 Morphine Sulfate 2 mg Q4HPRN PRN IV 03/13/25 21:00 Nitroglycerin 0.4 mg Q5MINP PRN SL 03/13/25 21:00 Morphine Sulfate 2 mg Q30M PRN IV 03/13/25 21:00 Vancomycin HCl 0 ml @ 0 mls/hr UD IV 03/13/25 21:15 Cefepime HCl 50 ml @ 12.5 mls/hr DAILY IV 03/13/25 21:15 03/16/25 09:25 12.5 MLS/HR Gabapentin 100 mg BID PO 03/13/25 22:00 03/16/25 09:26 100 MG Diagnostic Test (Pha) 1 strip Q6HR 03/14/25 00:00 03/16/25 12:05 1 STRIP Insulin Human Regular Q6HR SC 03/14/25 00:00 03/16/25 11:52 3 UNITS Dextrose 50 ml UD PRN IV 03/13/25 21:15 Pantoprazole Sodium 40 mg DAILY IV 03/13/25 21:30 03/16/25 09:25 40 MG Metoprolol Tartrate 50 mg BID PO 03/14/25 12:42 03/16/25 09:27 50 MG Vancomycin HCl 200 ml @ 200 mls/hr Q12H IV 03/14/25 15:00 03/16/25 03:59 200 MLS/HR Laboratory Results Laboratory Tests 03/14/25 06:45 03/16/25 01:59 Microbiology Microbiology Date/Time Source Procedure Growth Status 03/14/25 15:24 Foot Right Gram Stain - Final Resulted 03/14/25 15:24 Foot Right Anaerobic Culture - Preliminary Resulted 03/14/25 15:24 Foot Right Aerobic Culture - Preliminary Resulted 03/14/25 15:00 Voided Urine Urine Culture - Final Complete 03/14/25 06:45 Blood Blood Culture - Preliminary NO GROWTH AFTER 48 HOURS OF INCUBATION. Resulted Assessment/Plan Assessment/Plan ASSESSMENT: Patient is a [age] year old seen on the floor follow up s/p foot I&D PLAN: - The patients chart was reviewed, clinical findings were discussed with the patient, the etiologies of the conditions were discussed in detail, and a treatment plan was agreed to at this time, with both oral and written instructions provided. - reviewed advanced imaging - reviewed all of the labs and pathology - discussed that the wound is closed and appears to be healing appropriately - discharged home on p.o. antibiotics, Augmentin - keep dressings clean dry and intact - weightbear as tolerated postop shoe - follow up with me on Wednesday All questions were answered and concerns addressed to the patient's satisfaction. The patient was given the phone number to the clinic and was told how to make contact with the clinic should any concerns or questions arise. Patient understands that if any questions or concerns arise prior to the next appointment, we should be contacted immediately. FOLLOW-UP: Continue to follow while inpatient Plan discussed with: Patient Problem List: (1) Osteomyelitis of ankle or foot, acute Date of Service: Mar 16, 2025 Billing Provider: ORQUIDEA ROBERT DPM Common Visit Codes: [id number] INP/OBS CARE(HIGH) ORQUIDEA ROBERT DPM Mar 16, 2025 12:31
[2025-03-16 13:00] VITALS: BP 129/82; PULSE 91; RESP 20; TEMP 97.7; O2SAT 95
--- NOTE | 2025-03-16 14:17 | DVHPN2 ---
Progress Note - Dictate Date Seen: Mar 15, 2025 Medical Necessity Reason Pt with a Central, PICC or Fol: No Subjective PT WITH OSTEOMYELITIS OF THE FOOT WITH DIABETIC FOOT ULCER S/P DEBRIDEMENT PMH; DIABETES VAACULOPATHY NEUROPATHY NEPHROPATHY HTN PAD ULCER OF LE OSTEOMYELITIS NOW WITH HEART BLOCK 2 AV BLOCK vital signs Vital Sign Date Time Temp Pulse Resp B/P (MAP) Pulse Ox O2 Delivery O2 Flow Rate FiO2 03/16/25 13:00 97.7 91 20 129/82 (98) 95 97.7 03/16/25 08:00 Room Air* 0 21 Total Intake and Output 03/15/25 03/15/25 03/16/25 15:00 23:00 07:00 Intake Total 290 ml 460 ml 840 ml Balance 290 ml 460 ml 840 ml medications Current Medications Medications Dose Ordered Sig/Robert Route Start Time Stop Time Status Last Admin Dose Admin Sodium Chloride 1,000 ml @ 60 mls/hr [id number] IV 03/13/25 21:00 03/15/25 21:40 60 MLS/HR Acetaminophen/ Hydrocodone Bitart 1 tab Q4HP PRN PO 03/13/25 21:00 Ondansetron HCl 4 mg Q4HP PRN IV 03/13/25 21:00 Docusate Sodium 100 mg BIDPRN PRN PO 03/13/25 21:00 Acetaminophen 650 mg Q6HP PRN PO 03/13/25 21:00 Morphine Sulfate 2 mg Q4HPRN PRN IV 03/13/25 21:00 Nitroglycerin 0.4 mg Q5MINP PRN SL 03/13/25 21:00 Morphine Sulfate 2 mg Q30M PRN IV 03/13/25 21:00 Vancomycin HCl 0 ml @ 0 mls/hr UD IV 03/13/25 21:15 Cefepime HCl 50 ml @ 12.5 mls/hr DAILY IV 03/13/25 21:15 03/16/25 09:25 12.5 MLS/HR Gabapentin 100 mg BID PO 03/13/25 22:00 03/16/25 09:26 100 MG Diagnostic Test (Pha) 1 strip Q6HR 03/14/25 00:00 03/16/25 12:05 1 STRIP Insulin Human Regular Q6HR SC 03/14/25 00:00 03/16/25 11:52 3 UNITS Dextrose 50 ml UD PRN IV 03/13/25 21:15 Pantoprazole Sodium 40 mg DAILY IV 03/13/25 21:30 03/16/25 09:25 40 MG Metoprolol Tartrate 50 mg BID PO 03/14/25 12:42 03/16/25 09:27 50 MG Vancomycin HCl 200 ml @ 200 mls/hr Q12H IV 03/14/25 15:00 03/16/25 03:59 200 MLS/HR laboratory and microbiology Laboratory Tests 03/16/25 01:59 03/14/25 06:45 Test 03/14/25 06:45 Range/Units Serum Glucose 98 74-106 mg/dL Problem List OSTEOMYELITIS OF THE FOOT WITH DIABETIC FOOT ULCER S/P DEBRIDEMENT PMH; DIABETES VAACULOPATHY NEUROPATHY NEPHROPATHY HTN PAD ULCER OF LE OSTEOMYELITIS NOW WITH HEART BLOCK 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
[2025-03-16] MEDS ORDERED: AUG875T PO (14:40)
--- NOTE | 2025-03-16 14:47 | DVHDS2 ---
Discharge Summary Date of Admission Mar 13, 2025 at 20:53 Date of Discharge: Mar 16, 2025 Admitting Diagnosis Right foot cellulitis Wounds: Amputation of the right proximal phalanx Labs/Diagnostic Data: Laboratory Results Test 03/16/25 06:24 03/16/25 01:59 03/14/25 06:45 03/13/25 18:33 POC Glucose 131 mg/dl (70-106) Creatinine 1.02 mg/dL (0.550-1.02) Glomerular Filtration Rate Calc 57 mL/min (>90) Vancomycin Level Trough 16.6 ug/mL (5-10) White Blood Count 6.9 10^3/uL (4.4-10.8) Red Blood Count 3.60 10^6/uL (4.0-5.20) Hemoglobin 11.7 g/dL (12.2-16.2) Hematocrit 33.4 % (36.0-46.0) Mean Corpuscular Volume 92.7 fL (80.0-100.0) Mean Corpuscular Hemoglobin 32.5 pg (28.0-32.0) Mean Corpuscular Hemoglobin Concent 35.1 g/dL (32.0-36.0) Red Cell Distribution Width 14.0 % (11.8-14.3) Platelet Count 292 10^3/uL (140-450) Mean Platelet Volume 7.4 fL (6.9-10.8) Neutrophils (%) (Auto) 51.0 % (37.0-80.0) Lymphocytes (%) (Auto) 39.0 % (10.0-50.0) Monocytes (%) (Auto) 7.2 % (0.0-12.0) Eosinophils (%) (Auto) 2.3 % (0.0-7.0) Basophils (%) (Auto) 0.5 % (0.0-2.0) Neutrophils # (Auto) 3.5 10 ^3/uL (1.6-8.6) Lymphocytes # (Auto) 2.7 10 ^3/uL (0.4-5.4) Monocytes # (Auto) 0.5 10 ^3/uL (0-1.3) Eosinophils # (Auto) 0.2 10 ^3/uL (0-0.8) Basophils # (Auto) 0 10 ^3/uL (0-0.2) Nucleated Red Blood Cells 0.1 % Sodium Level 144 mmol/L (136-145) Potassium Level 3.7 mmol/L (3.5-5.1) Chloride Level 106 mmol/L (98-107) Carbon Dioxide Level 27 mmol/L (20-31) Anion Gap 11 (5-15) Blood Urea Nitrogen 11 mg/dL (9-23) BUN/Creatinine Ratio 13.8 (10.0-20.0) Serum Glucose 98 mg/dL (74-106) Lactic Acid Level 1.2 mmol/L (0.4-2.0) Calcium Level 9.2 mg/dL (8.7-10.4) Iron Level 50 ug/dL (50-170) Total Iron Binding Capacity 272 ug/dL (250-425) Percent Iron Saturation 18.4 % (15-50) Ferritin 157.1 ng/mL (10-291) Total Bilirubin 0.4 mg/dL (0.2-1.0) Aspartate Amino Transferase (AST) 18 U/L (<34) Alanine Aminotransferase (ALT) 13 U/L (7-40) Alkaline Phosphatase 56 U/L (46-116) Total Protein 6.9 g/dL (5.7-8.2) Albumin 4.2 g/dL (3.2-4.8) Lipase 44 U/L (12-53) Thyroid Stimulating Hormone (TSH) 3.18 uIU/mL (0.55-4.78) Random Vancomycin Level 5.0 ug/mL (5-10) Erythrocyte Sedimentation Rate 47 mm/hr (0-20) Prothrombin Time 10.8 sec (9.3-11.8) Prothrombin Time INR 1.02 (0.9-1.15) Hemoglobin A1c 5.9 % A1C (<5.7) Direct Bilirubin 0.1 mg/dL (<0.3) C-Reactive Protein High Sensitivity 0.62 mg/dL (<1.0) Other Laboratory Tests 03/16/25 01:59 03/14/25 06:45 Brief Hx & Hospital Course: 74-year-old female with a history of diabetes hypotension came in for chronic right foot infection found to have osteomyelitis of the right foot blood cultures negative wound cultures aerobic cultures negative anaerobic cultures pending. Patient was found to have osteomyelitis right 2nd and 3rd toe started on vancomycin and cefepime consult by our podiatric Dr. Garcia who performed incision and drainage to the bone right distal phalanx amputation and right proximal phalanx bone biopsy with a delayed closure. Patient feels fine and wants to go home. Patient does not want to wait for anymore procedures. at the bedside. Dr Garcia recommended Augmentin p.o. as outpatient antibiotics and patient prescription has been transmitted to [facility] in [place] and discharged. She does not want any pain medication, MARC Lind at bedside at the time of discussion of discharge plan. She refused jail facility placement also refused home health. Consults/Reason for consult [employer] Dr. Garcia Cardiology Dr. Neal Operations or Procedures Amputation of the right proximal phalanx Condition at Discharge: Fair Final Diagnosis/Problems List Sepsis secondary to osteomyelitis: Blood cultures negative urine cultures negative, wound cultures aerobic culture negative, wound anaerobic cultures pending Acute osteomyelitis right 2nd and 3rd toe: Vancomycin cefepime consult for marketing support manager Dr Garcia status post right foot I&D to bone, right distal phalanx amputation, right proximal phalanx bone biopsy and delayed closure by Dr. Garcia 03-14-25 Hypertensive urgency BP 174/114 metoprolol tartrate Peripheral neuropathy on gabapentin Diabetic right foot ulcer Controlled diabetes: Insulin sliding scale: Patient on Ozempic metformin glimepiride, A1c 5.9 Diabetic neuropathy nephropathy vasculopathy: Gabapentin Discharge Disposition: Home Discharge Instruct/Medications Diet: Consistent carbohydrate Activity: Light activity Follow Up/Referral: Follow up with your primary Dr. Banda Keep your appointment with the podiatric Dr. López on 03-20-25Wed Resume all previous home meds Medications: Augmentin 875 mg p.o. b.i.d. [address] [facility] 36 (Time taken for discharge summary 36 minutes) Discharge Statement: "Patient was advised to return to the ER or call 911 if any headaches, dizziness, shortness of breath, chest pain, abdominal pain, bleeding, fevers, or worsening of medical condition. Patient was counseled about treatment plan, medications, possible side effects, patientverbalized understanding. All questions were answered to the best of my ability. This discharge took greater then 30 minutes in planning, reviewing documentation, counseling the patient, and discussing with other team members." ASSESSMENT ASSESSMENT Hospital Course Improved Assessment Sepsis secondary to osteomyelitis: Blood cultures negative urine cultures negative, wound cultures aerobic culture negative, wound anaerobic cultures pending Acute osteomyelitis right 2nd and 3rd toe: Vancomycin cefepime consult for marketing support manager Dr Garcia status post right foot I&D to bone, right distal phalanx amputation, right proximal phalanx bone biopsy and delayed closure by Dr. Garcia 03-14-25 Hypertensive urgency BP 174/114 metoprolol tartrate Peripheral neuropathy on gabapentin Diabetic right foot ulcer Controlled diabetes: Insulin sliding scale: Patient on Ozempic metformin glimepiride, A1c 5.9 Diabetic neuropathy nephropathy vasculopathy: Gabapentin Date of Service: Mar 16, 2025 Billing Provider: ANNIE PRECIADO MD Common Visit Codes: [id number] DISCH DAY >30min ANNIE PRECIADO MD Mar 16, 2025 14:47
[2025-03-16 15:35] VITALS: BP 139/82; PULSE 91; RESP 20; TEMP 97.7; O2SAT 95
--- NOTE | 2025-03-16 17:40 | DVH ---
Indication: NON HEALING ULCER Technique: Real- time ultrasound images of the bilateral lower extremity with grayscale, color, and spectral wave Doppler. Comparison: None Findings: Biphasic waveforms in the right FILLER WIPER, SFA, popliteal arteries. Monophasic waveform in the right dorsa lis pedis artery. Biphasic / triphasic waveform right posterior tibial artery. Biphasic waveform lef t FILLER WIPER/ SFA / popliteal /dorsalis pedis arteries. Biphasic waveform left posterior tibial artery. Mild atherosclerotic plaque Peak systolic velocities are as follows (in cm/s): Right: Common femoral artery: 80 Profunda femoris: 37 Proximal superficial femoral: 62 Mid superficial femoral artery: 75 Distal superficial femoral artery: 69 Popliteal artery: 64 Posterior tibial artery: 95 Dorsalis pedis artery: 52 Left: Common femoral artery: 79 Profunda femoris: 59 Proximal superficial femoral: 66 Mid superficial femoral artery: 77 Distal superficial femoral artery: 67 Popliteal artery: 44 Posterior tibial artery: 18 Dorsalis pedis artery: 44 Impression: Mild atherosclerotic calcification disease. Diminished velocity within the left posterior tibial artery likely consistent with hemodynamically si gnificant stenosis. Monophasic waveform in the right dorsalis pedis artery consistent with hemodynamically significant st enosis.
--- NOTE | 2025-03-19 11:58 | DVHPN2 ---
Progress Note - Dictate Date Seen: Mar 16, 2025 Medical Necessity Reason Pt with a Central, PICC or Fol: No Subjective PT WITH OSTEOMYELITIS OF THE FOOT WITH DIABETIC FOOT ULCER S/P DEBRIDEMENT PMH; DIABETES VAACULOPATHY NEUROPATHY NEPHROPATHY HTN PAD ULCER OF LE OSTEOMYELITIS NOW WITH HEART BLOCK 2 AV BLOCK laboratory and microbiology Laboratory Tests 03/16/25 01:59 03/14/25 06:45 Test 03/14/25 06:45 Range/Units Serum Glucose 98 74-106 mg/dL Problem List OSTEOMYELITIS OF THE FOOT WITH DIABETIC FOOT ULCER S/P DEBRIDEMENT PMH; DIABETES VAACULOPATHY NEUROPATHY NEPHROPATHY HTN PAD ULCER OF LE OSTEOMYELITIS NOW WITH HEART BLOCK 2 AV BLOCK Assessment/Plan CONSIDER LE ARTERIAL DOPPLER ABX HEMODYNAMICALLY STABLE AND ASYMPTOMATIC FROM HEART BLOCK WILL MONITOR Dietary Evaluation Review Comments: CCHO-60 diet, fabienne BID for wound healing Expected Outcomes/Goals: gradual wt loss, healed wound Plan discussed with: Patient CHAKA SIDDIQI MD Mar 19, 2025 11:58
== END 2025-03-16 17:10 | disposition home or self-care (01) | DRG 854 ==
LOC: ER 16:46 → OVERFLOW 20:53 → CENTRAL 22:38
PROVIDERS: ADMIT Family Medicine; ATTEND Family Medicine
PROC: 0QBQ0ZX Excision of Right Toe Phalanx, Open Approach, Diagnostic (ICD-10-PCS; 2025-03-14)
PROC: 0LNV3ZZ Release Right Foot Tendon, Percutaneous Approach (ICD-10-PCS; 2025-03-14)
PROC: 0Y9M0ZZ Drainage of Right Foot, Open Approach (ICD-10-PCS; 2025-03-14)
PROC: 0Y6T0Z3 Detachment at Right 3rd Toe, Low, Open Approach (ICD-10-PCS; principal; 2025-03-14 14:24)
DX: A41.9 Sepsis, unspecified organism (principal); L03.115 Cellulitis of right lower limb; M86.171 Other acute osteomyelitis, right ankle and foot; E11.21 Type 2 diabetes mellitus with diabetic nephropathy; E11.40 Type 2 diabetes mellitus with diabetic neuropathy, unspecified; E11.621 Type 2 diabetes mellitus with foot ulcer; I16.0 Hypertensive urgency; L97.519 Non-pressure chronic ulcer of other part of right foot with unspecified severity; E11.65 Type 2 diabetes mellitus with hyperglycemia; E11.69 Type 2 diabetes mellitus with other specified complication; I10 Essential (primary) hypertension; I44.1 Atrioventricular block, second degree
CPT/HCPCS: 36415; 71045; 73700; 80048; 80053; 80076; 80202; 82565; 82728; 82962; 83036; 83540; 83550; 83605; 83690; 84443; 85025; 85610; 85652; 86141; 87040; 87070; 87075; 87076; 87077; 87086; 87186; 87205; 93005; 93925; 96365; 97110; G0378; J1815; J2250; J2470; J3490

== ENCOUNTER 2025-04-30 12:03 | Outpatient (CLI) | payer MEDICARE, BC ==
[~2025-04-30] VITALS: Ht 172.7 cm; Wt 97.5 kg
[~2025-04-30 12:03] MED LIST: AUG875T PO
== END 2025-04-30 17:00 | disposition home or self-care (01) ==
LOC: Rad HDHVI 12:03
PROVIDERS: ATTEND Internal Medicine Cardiovascular Disease
DX: I49.3 Ventricular premature depolarization (principal); R00.0 Tachycardia, unspecified; R94.31 Abnormal electrocardiogram [ECG] [EKG]; Z13.6 Encounter for screening for cardiovascular disorders; I10 Essential (primary) hypertension; E11.42 Type 2 diabetes mellitus with diabetic polyneuropathy; I44.2 Atrioventricular block, complete; Z79.82 Long term (current) use of aspirin; Z82.49 Family history of ischemic heart disease and other diseases of the circulatory system
CPT/HCPCS: 78452; 93017; A9500; 96374

== ENCOUNTER 2025-05-03 09:41 | Outpatient (CLI) | payer MEDICARE, BC | END 2025-05-03 17:00 | disposition home or self-care (01) | LOC: Rad HDHVI 09:41 | PROVIDERS: ATTEND Internal Medicine Cardiovascular Disease | DX: I08.0 Rheumatic disorders of both mitral and aortic valves (principal); I11.9 Hypertensive heart disease without heart failure | CPT/HCPCS: 93306 ==

== ENCOUNTER 2025-06-18 09:40 | Outpatient (CLI) | payer MEDICARE, BC ==
[2025-06-18 10:05] VITALS: BP 131/85; PULSE 101; RESP 16; O2SAT 95
[2025-06-18 10:21] VITALS: BP 120/84; PULSE 104; RESP 16; O2SAT 96
[2025-06-18] MEDS ORDERED: [UNRECOGNIZED DRUG - CODE] OP (18:06)
[2025-06-18] MEDS ORDERED: TURM500C3 PO (18:06)
[2025-06-18] MEDS ORDERED: GLIM4TAB42 PO (18:06)
[2025-06-18] MEDS ORDERED: CHOL10006 PO (18:06)
[2025-06-18] MEDS ORDERED: CALC-312 PO (18:06)
[2025-06-18] MEDS ORDERED: MAGN400T40 PO (18:06)
[2025-06-18] MEDS ORDERED: THIA100T10 GT (18:06)
[2025-06-18] MEDS ORDERED: OMEG-20 PO (18:06)
[2025-06-18] MEDS ORDERED: CINN500C7 PO (18:06)
[2025-06-18] MEDS ORDERED: ZINC10LO4 PO (18:06)
[2025-06-18] MEDS ORDERED: SEMA2INJ3 SC (18:06)
[2025-06-18] MEDS ORDERED: ASPI-543 PO (18:06)
[2025-06-18] MEDS ORDERED: MULT-733 OR (18:06)
[2025-06-18] MEDS ORDERED: SACU1TAB7 PO (18:06)
[2025-06-18] MEDS ORDERED: COEN300C2 PO (18:06)
[2025-06-18] MEDS ORDERED: METF-372 PO (18:06)
[2025-06-18] MEDS ORDERED: ATEN100T PO (18:06)
[2025-06-18] MEDS ORDERED: ASCO100076 PO (18:06)
== END 2025-06-18 17:00 | disposition home or self-care (01) ==
LOC: CHF HDHVI 09:40
PROVIDERS: ATTEND Internal Medicine Cardiovascular Disease
DX: Z01.818 Encounter for other preprocedural examination (principal); R00.0 Tachycardia, unspecified; I11.0 Hypertensive heart disease with heart failure; I50.1 Left ventricular failure, unspecified; Z79.899 Other long term (current) drug therapy
CPT/HCPCS: 36415; 80048; 85025; 85610; 85730; 93005; G0463

== ENCOUNTER 2025-06-21 06:41 | Day surgery (SDC) | payer MEDICARE, BC ==
[2025-06-18 12:34] LABS: Hematocrit 39.7 % (36.0-46.0); Hemoglobin 14.0 g/dL (12.2-16.2); Mean Corpuscular Hemoglobin 32.6 pg (28.0-32.0); Mean Corpuscular Volume 92.5 fL (80.0-100.0); Nucleated Red Blood Cells % 0.1 %
[2025-06-18 12:50] LABS: INR 1.02 (0.9-1.15); Partial Thromboplastin Time 25.9 SEC (24.5-34.5); Prothrombin Time 10.8 sec (9.3-11.8)
[2025-06-18 13:11] LABS: Chloride 105 mmol/L (98-107); Potassium 4.5 mmol/L (3.5-5.1); Sodium 143 mmol/L (136-145)
[2025-06-18 13:12] LABS: Anion Gap 11 (5-15); Calcium 9.7 mg/dL (8.7-10.4); Carbon Dioxide 27 mmol/L (20-31)
[2025-06-18 13:17] LABS: BUN/Creatinine Ratio 14.8 (10.0-20.0); Blood Urea Nitrogen 13 mg/dL (9-23); Glucose 91 mg/dL (74-106)
[2025-06-21] VITALS (9 sets, daily range): BP systolic 103–131; BP diastolic 68–83; PULSE 82–94; RESP 12–15; TEMP 98.2; O2SAT 92–95
[~2025-06-21] VITALS: Ht 172.7 cm; Wt 97.5 kg
[~2025-06-21 06:41] MED LIST changes: +ASCO100076 PO; +ASPI-543 PO; +ATEN100T PO; -AUG875T PO; +CALC-312 PO; +CHOL10006 PO; +CINN500C7 PO; +COEN300C2 PO; +GLIM4TAB42 PO; +MAGN400T40 PO; +METF-372 PO; +MULT-733 OR; +OMEG-20 PO; +SACU1TAB7 PO; +SEMA2INJ3 SC; +THIA100T10 GT; +TURM500C3 PO; +ZINC10LO4 PO; +[UNRECOGNIZED DRUG - CODE] OP
[2025-06-21] MEDS: IOHEXOL 350 MG/ML 100ML IJ ONE ×2 (07:37→09:15)
[2025-06-21] MEDS: fentaNYL CITRATE 100 MCG/2 ML VL ONE (08:22)
[2025-06-21] MEDS: MIDAZOLAM HCL 2MG/2ML 2ml VIAL (1mg/ml) ONE (08:22)
[2025-06-21] MEDS: LIDOCAINE 2%HCL (LOCAL ANESTH.) INJ 20ML MDV ONE (08:22)
[2025-06-21] MEDS: ANGIOMAX 250 MG VIAL IV ONE (08:33)
[2025-06-21] MEDS: SODIUM CHL 0.9% 50 ML ONE (08:33)
--- NOTE | 2025-06-21 10:01 | DVHDS ---
DATE OF DISCHARGE: 06/21/2025 DISCHARGE DIAGNOSES: Coronary artery disease, status post angioplasty, stent placement of OM1 and OM2. The patient will require further intervention of the left anterior descending artery, proximal, and the proximal RCA as well at a later date. In the meantime, the patient also seems to have aortic valve stenosis that may require intervention at a later date. The patient is stable at the time of discharge. DISPOSITION: Home. ACTIVITY: Instructed. DIET: Will be 2 g sodium 1800 calorie ADA diet. The patient will be discharged home on Plavix 75 mg p.o. daily. The patient has been loaded with Plavix 300 mg p.o. daily. Ángel Aparicio MD SA/NICK TID: [id number] RECEIPT: [id number]
[2025-06-21] MEDS: CLOPIDOGREL BISULFATE 75 MG TAB ONE (10:02)
--- NOTE | 2025-06-21 10:19 | DVHOP ---
DATE OF SURGERY: 06/21/2025 PROCEDURES PERFORMED: * Selective left and right coronary angiography. * Ventriculogram. * Right iliac angiography. * Shockwave of obtuse marginal 1 and obtuse marginal 2, thrombectomy. * Angioplasty with stent placement, tandem stent placed on obtuse marginal 1, obtuse marginal 2 with two 15 mm x 2.5 mm Balaton Colville stents in the bifurcation of OM1 and OM2. * FFR of the LAD as well as the circumflex. * Conscious sedation. DESCRIPTION OF PROCEDURE: The patient was prepped and draped in a sterile condition. 1% Xylocaine was used to anesthetize the right groin. Using Cook needle, right femoral artery was engaged with Seldinger technique, a 6-Pakistani sheath in the right femoral artery. Using a 6-Pakistani JL4 catheter and a 6-Pakistani JR4 catheter, selective left and right coronary angiography was performed. Using a 6-Pakistani pigtail catheter, ventriculogram was done. Then, the 6-Pakistani diagnostic system was exchanged for a 6-Pakistani interventional system. Using a 6-Pakistani XB 3.5 guide catheter, the left main was cannulated. A Choice PT extra support wire was placed in the obtuse marginal 2 and a run-through wire was placed in the obtuse marginal 1. Both lesions at the bifurcation was dilated with a 2.5 and thrombectomized with a 2.5 x 13 mm Shockwave balloons. Following the treatment, then two stents were placed. A kissing balloon technique was used where a 2.5 x 15 mm and 2.5 x 15 mm Balaton Colville stent were deployed at OM1 and OM2 at the bifurcation and deployed at 12 atmospheres. There were no complications. The patient tolerated the procedure well. RESULTS: * Left main calcified. No flow-restrictive lesion. * Left anterior descending artery had a proximal 80% narrowing with an FFR of 0.78 in the proximal segment, FFR of 0.92 in the distal segment of the LAD. There is moderate diffuse disease throughout the left anterior descending artery. * Circumflex artery, mild diffuse disease throughout, but at the bifurcation of the OM1 and OM2, there is a 95% narrowing leading into both arteries, status post angioplasty, shockwave treatment, thrombectomy, and stent placement with a 2.5 x 15 mm Smith Colville stent with kissing technique with less than 10% residual stenosis. * Right coronary artery in the proximal segment has also an 80% narrowing with moderate diffuse disease throughout the RCA. Left ventricular function was preserved with an estimated EF of 55% with LVEDP of 11 mmHg. However, left ventricular systolic pressure was 180 while aortic systolic pressure was 140. There was a 36 mm gradient across the aortic valve. Therefore, more detailed examination of the aortic valve has to be done with the next case, when I do the case next time around for the left anterior descending artery, RCA angioplasty or do a right heart catheterization to calculate the aortic valve area. Thus, the patient underwent successful angioplasty with stent placement of the OM1 and OM2. Ángel Aparicio MD SA/ABHIJEET TID: [id number] RECEIPT: [id number]
--- NOTE | 2025-06-21 10:19 | DVHHP ---
ADMIT DATE: 06/21/2025 HISTORY OF PRESENT ILLNESS: The patient who is 74 years old with a history of diabetes, hypertension, hyperlipidemia, and morbid obesity, now with signs and symptom complex of chest pain, abnormal stress Cardiolite. An echocardiography shows calcification of the aortic valve with moderate aortic valve stenosis as well as segmental wall motion abnormality. The patient is now to undergo coronary angiography of the risk factors. Family history is also significant for coronary artery disease. She denies previous history of myocardial infarction. No history of congestive heart failure in the past. Tele monitor, however, shows the patient to have sinus tachycardia with atrial tachycardia as well with diminished left ventricular ejection fraction. Therefore, it is felt that the patient should undergo coronary angiography to define coronary anatomy clinical findings to EKG findings and echo findings as well as from nuclear stress test. REVIEW OF SYSTEMS: The patient has no history of CVA. No seizure disorder. No history of movement disorders. No visual disturbances. No hearing deficit. No history of GI symptomatology such as dysphagia, diarrhea, constipation, irritable bowel syndrome, inflammatory bowel disease. She denies any liver disease. She denies any GI symptomatology. Positive for diabetes, endocrine. She has no history of bleeding diathesis, hematemesis, hemoptysis, hematochezia, as well as hematuria. No melena as well. Lungs: No history of COPD. No history of tobacco use. Cardiovascular exam: No history of previous myocardial infarction. Extremities: 2+ pulses. Denies any fever or chills. No outside travel. PHYSICAL EXAMINATION: VITAL SIGNS: Blood pressure is 148/82, pulse of 90 and regular. O2 saturation 98% on room air. HEENT: Pupils are reactive. Funduscopic exam is benign. Sclerae anicteric. No exudates noted. Tympanic membranes are negative. Oral mucosa moist. Posterior pharynx without any exudates. NECK: Supple. Carotid pulses are 2+ and symmetrical. No nuchal rigidity appreciated. No cervical adenopathy. No supraclavicular adenopathy. Carotid pulses are 2+ and symmetrical. Normal upstroke and contour. No JVD appreciated. Thyroid is within normal limits. PULMONARY: Clear to auscultation. Tympanic to percussion. No rhonchi, no wheezes. No egophony. CARDIOVASCULAR: Regular rate. There is a 2/crescendo decrescendo murmur along the left sternal border. ABDOMEN: Soft, obese, unable to appreciate organomegaly. The patient is too guaiac negative. NEUROLOGIC: The patient is intact. DTRs are 2+ symmetrical. Cranial nerves 2-12 are within normal limits. Sensory and motor modalities are intact. Negative for Babinski. Negative ataxia as well and negative for pronator drift. EXTREMITIES: 1+ edema and 2+ pulses. ASSESSMENT AND PLAN: Thus, the patient with diabetes, hypertension, hyperlipidemia, morbid obesity, now with abnormal echocardiogram, abnormal stress test. The patient is now to undergo left heart catheterization. RECOMMENDATIONS: Further recommendations after the angiography. Ángel Aparicio MD SA/EKT/YAMILA TID: [id number] RECEIPT: [id number]
== END 2025-06-21 12:16 | disposition home or self-care (01) ==
LOC: CATH 06:41
PROVIDERS: ATTEND Internal Medicine Cardiovascular Disease
DX: R94.39 Abnormal result of other cardiovascular function study (principal); I25.10 Atherosclerotic heart disease of native coronary artery without angina pectoris; I25.84 Coronary atherosclerosis due to calcified coronary lesion; I10 Essential (primary) hypertension; E11.9 Type 2 diabetes mellitus without complications; E78.5 Hyperlipidemia, unspecified; I35.0 Nonrheumatic aortic (valve) stenosis; I35.8 Other nonrheumatic aortic valve disorders; I25.2 Old myocardial infarction; E66.01 Morbid (severe) obesity due to excess calories; Z68.32 Body mass index [BMI] 32.0-32.9, adult; Z79.82 Long term (current) use of aspirin; Z79.84 Long term (current) use of oral hypoglycemic drugs; Z79.899 Other long term (current) drug therapy; Z90.710 Acquired absence of both cervix and uterus; Z82.49 Family history of ischemic heart disease and other diseases of the circulatory system
CPT/HCPCS: 0523T; 36415; 80048; 85025; 85610; 85730; 92972; 92973; 93458; C1725; C1760; C1769; C1874; C1887; C1894; C9600; J0583; J1644; J2250; J3010; J7030; Q9967; 99152; 99153

== ENCOUNTER 2025-08-06 08:38 | Outpatient (CLI) | payer MEDICARE, BC ==
[2025-08-06 08:58] VITALS: BP 129/77; PULSE 102; RESP 16; O2SAT 98
[2025-08-06 09:15] VITALS: BP 113/76; PULSE 100; RESP 16; O2SAT 98
[2025-08-06] MEDS ORDERED: CINN1CAP2 PO (10:35)
[2025-08-06] MEDS ORDERED: TRAV0.00 EACHEYE (10:35)
[2025-08-06] MEDS ORDERED: TIMO0.5S28 OP (10:35)
[2025-08-06] MEDS ORDERED: CLOP75TA28 PO (10:35)
[2025-08-06] MEDS ORDERED: CHOL20007 PO (10:35)
[2025-08-06] MEDS ORDERED: B-CO1CAP18 PO (10:35)
== END 2025-08-06 17:00 | disposition home or self-care (01) ==
LOC: CHF HDHVI 08:38
PROVIDERS: ATTEND Internal Medicine Cardiovascular Disease
DX: Z01.810 Encounter for preprocedural cardiovascular examination (principal); I49.3 Ventricular premature depolarization; R00.0 Tachycardia, unspecified
CPT/HCPCS: 93005; G0463

== ENCOUNTER 2025-08-09 06:35 | Day surgery (SDC) | payer MEDICARE, BC ==
[2025-08-06 11:11] LABS: Hematocrit 39.4 % (36.0-46.0); Hemoglobin 13.5 g/dL (12.2-16.2); Mean Corpuscular Hemoglobin 32.8 pg (28.0-32.0); Mean Corpuscular Volume 96.0 fL (80.0-100.0); Nucleated Red Blood Cells % 0.0 %
[2025-08-06 11:27] LABS: INR 1.01 (0.9-1.15); Partial Thromboplastin Time 26.1 SEC (24.5-34.5); Prothrombin Time 10.7 sec (9.3-11.8)
[2025-08-06 11:35] LABS: Chloride 102 mmol/L (98-107); Potassium 4.6 mmol/L (3.5-5.1); Sodium 141 mmol/L (136-145)
[2025-08-06 11:36] LABS: Anion Gap 11 (5-15); Calcium 10.1 mg/dL (8.7-10.4); Carbon Dioxide 28 mmol/L (20-31)
[2025-08-06 11:41] LABS: BUN/Creatinine Ratio 13.7 (10.0-20.0); Blood Urea Nitrogen 13 mg/dL (9-23); Glucose 103 mg/dL (74-106)
[~2025-08-09] VITALS: Ht 170.2 cm; Wt 98.0 kg
[~2025-08-09 06:35] MED LIST changes: +B-CO1CAP18 PO; -CHOL10006 PO; +CHOL20007 PO; +CINN1CAP2 PO; -CINN500C7 PO; +CLOP75TA28 PO; -MAGN400T40 PO; -THIA100T10 GT; +TIMO0.5S28 OP; +TRAV0.00 EACHEYE; -[UNRECOGNIZED DRUG - CODE] OP
[2025-08-09] MEDS: HEPARIN IN NS 1000Units/500mL 1,500 ML ONE (07:11)
[2025-08-09] MEDS: IOHEXOL 350 MG/ML 100ML IJ ONE (07:11)
[2025-08-09] MEDS: ANGIOMAX 250 MG VIAL IV ONE (07:31)
[2025-08-09] MEDS: MIDAZOLAM HCL 2MG/2ML 2ml VIAL (1mg/ml) ONE (07:32)
[2025-08-09] MEDS: fentaNYL CITRATE 100 MCG/2 ML VL ONE (07:32)
[2025-08-09] MEDS: LIDOCAINE 2%HCL (LOCAL ANESTH.) INJ 20ML MDV ONE (07:32)
[2025-08-09] MEDS: SODIUM CHL 0.9% 50 ML ONE (07:32)
--- NOTE | 2025-08-09 13:06 | DVHHP ---
ADMIT DATE: 08/09/2025 HISTORY OF PRESENT ILLNESS: The patient with history of a sinus tachycardia by telemetry, now having ejection fraction with slightly diminished EF around 45%. 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 The patient is now to undergo the above-mentioned procedure. Risks and benefits were explained to the patient. The patient understands and agrees. She denies any fever, chills, melena, hematochezia, hematemesis, or hemoptysis. No history of rheumatoid arthritis. No history of mixed connective tissue disease. No irritable bowel syndrome. No GI symptoms at this time. She denies any syncope or seizure disorder. No neurological deficits such as seizures or CVA. No lung history. No history of current tobacco or alcohol use. She discontinued alcohol use. PHYSICAL EXAMINATION: VITAL SIGNS: Blood pressure is 134/80, pulse 70, O2 saturation 98% on room air. HEENT: Pupils are reactive. Funduscopic exam shows no AV nicking. No exudates. No papilledema. Oral mucosa moist. Posterior pharynx without any exudate. NECK: No JVD appreciated. Carotid pulses are 2+ and symmetrical. Normal upstroke and contour. PULMONARY: Clear to auscultation. Tympanic to percussion. No rhonchi. No wheezes. No egophony. CARDIOVASCULAR: Regular rate without S3, without S4. PMI is not displaced. ABDOMEN: Soft, nontender. Normal bowel sounds. Obese. Stool guaiac is negative. EXTREMITIES: 2+ pulses. NEUROLOGIC: DTRs are 2+ and symmetrical. Cranial nerves 2-12 are within normal limits. 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 Risks and benefits were explained to the patient. The patient understands and agrees. Ángel Aparicio MD SA/ABHIJEET TID: [id number] RECEIPT: [id number]
--- NOTE | 2025-08-09 13:08 | DVHDS ---
DATE OF DISCHARGE: 08/09/2025 DISCHARGE DIAGNOSIS: The patient underwent successful revascularization of the proximal left anterior descending artery and mid RCA without any complication. The patient is now doing well. His symptoms of chest pain and shortness of breath that he was exhibiting prior to the procedure are now resolved. Aggressive dual antiplatelet therapy will be maintained. Follow up with me in 1 week. CONDITION AT DISCHARGE: Stable at the time of discharge. DISPOSITION: Home. ACTIVITY: As instructed. DIET: With a 2 g sodium diet. Ángel Aparicio MD SA/ABHIJEET TID: [id number] RECEIPT: [id number]
--- NOTE | 2025-08-09 13:10 | DVHOP ---
DATE OF SURGERY: 08/09/2025 PROCEDURES TO BE PERFORMED: * Selective left and right coronary angiography. * Ventriculogram. * Thrombectomy and angioplasty of the mid RCA with a 3.0 x 22 mm Claridge Minerva stent. * Angioplasty with thrombectomy and FFR of the left anterior descending artery with stent placement with a 3.0 x 12 mm Resolute Smith stent. There were no complications. The patient tolerated the procedure well. DESCRIPTION OF PROCEDURE: The patient was prepped and draped in sterile condition. 1% Xylocaine was used to anesthetize the right groin. Conscious sedation was given to the patient. Following that, using a Seldinger technique, a 6-Honduran sheath in the right femoral artery. Using a 6-Honduran JL4 catheter and 6-Honduran JR4 catheter, selective left and right coronary angiography was done. Using a 6-Honduran pigtail catheter, ventriculogram was done following the angiography. Diagnostic system was exchanged for an interventional system. Using a 6-Honduran JR4 guide catheter, the RCA was cannulated. A ChoICE PT extra support wire was used to cross the lesion. It was then thrombectomized using a shock wave catheter. Following that, a 3.0 x 22 mm Claridge Minerva stent was then deployed across the lesion. There were no complications. The patient tolerated the procedure well. Then, using an XB 3.5 guide catheter, left main was cannulated. Using a ChoICE PT extra support wire, the same wire that I used previously, the LAD lesion was then crossed. It was proximal. Following the successful delivery of the wire to the distal aspect of the LAD, a 3.0 x 12 mm shock wave thrombectomy catheter was used. Following that, a 3.0 x 12 mm Claridge Minerva stent was then deployed across the lesion at 16 atmospheres. There were no complications. The patient tolerated the procedure well. Thus, the patient with a 90% narrowing of the left anterior descending artery, status post angioplasty with stent placement with a 3.0 x 12 mm Smith stent with less than 10% residual stenosis. The patient with about a 2.0 x 20 mm narrowing in the mid portion of the RCA, status post angioplasty with stent placement with a 3.0 x 22 mm Claridge Minerva stent with less than 10% residual stenosis. Clinically, the patient is stable. We will continue to follow the patient. She is fully revascularized at this time. Ángel Aparicio MD SA/AZAEL TID: [id number] RECEIPT: [id number]
== END 2025-08-09 10:59 | disposition home or self-care (01) ==
LOC: CATH 06:35
PROVIDERS: ATTEND Internal Medicine Cardiovascular Disease
DX: I25.10 Atherosclerotic heart disease of native coronary artery without angina pectoris (principal); R00.0 Tachycardia, unspecified; E66.9 Obesity, unspecified; Z68.33 Body mass index [BMI] 33.0-33.9, adult; Z90.710 Acquired absence of both cervix and uterus; Z79.82 Long term (current) use of aspirin; Z79.84 Long term (current) use of oral hypoglycemic drugs; Z79.899 Other long term (current) drug therapy
CPT/HCPCS: 0523T; 36415; 80048; 85025; 85610; 85730; 92972; 92973; 93458; C1760; C1761; C1769; C1874; C1887; C1894; C9600; J0583; J1644; J2250; J3010; J7030; Q9967; 99152; 99153